=== PATIENT | male | born 1940 ===

== ENCOUNTER 2017-02-13 20:26 | Inpatient (IN) ==
[2017-02-13] MEDS ORDERED: ALBUTEROL 2.5 MG/3 ML NEB RESP TX PRN (22:49)
[2017-02-13] MEDS ORDERED: ONDANSETRON 4 MG/2 ML VIAL IV PRN (22:49)
[2017-02-14] MEDS ORDERED: GLUCAGON 1 MG VIAL IM PRN (00:09)
[2017-02-14] MEDS ORDERED: MAGNESIUM SULF RIDER 1 GM in PREMIX 1 EACH IV ONE (00:09)
[2017-02-14] MEDS: POTASSIUM CHLORIDE RIDER 10 MEQ in PREMIX 1 EACH IV SCH ×7 (01:06→13:39)
[2017-02-14] MEDS: DEXT 5% NACL 0.45% KCL 20 MEQ 20 MEQ/1,000 ML BAG IV SCH ×2 (01:07→13:01)
[2017-02-14] MEDS: INSULIN REGULAR 100 UNIT/ML SUBCUT SCH ×4 (01:08→18:27)
[2017-02-14] MEDS: PIPERACILLIN/TAZOBACTAM 3,375 MG in SODIUM CHLORIDE 0.9% 100 ML IV SCH ×3 (02:38→20:47)
[2017-02-14 07:28] LABS: ABG Base Excess 17.9 MMOL/L (-2.5-2.5); ABG HCO3 42.1 MMOL/L (20-26); ABG Oxygen Saturation 95.9 % (95-100); ABG PCO2 64.1 MM HG (35-48); ABG PH 7.461 (7.35-7.45); ABG PO2 81.6 MM HG (80-95); ABG TCO2 40.1 MMOL/L (23-27); Allen Test Positive
[2017-02-14 07:44] LABS: Basophils % 0.2 % (0.0-0.8); Eosinophils % 0.4 % (0.00-10.9); Hematocrit 36.8 VOL% (42.0-52.0); Hemoglobin 12.8 GM/DL (14.0-18.0); Immature Granulocytes % 0.2 %; Immature Granulocytes Absolute 0.01 #; Lymphocytes # 0.5 10*3/uL (1.4-4.0); Lymphocytes % 9.4 % (21.2-54.2); Mean Corpuscular HGB Conc 34.8 GM/DL (32-36); Mean Corpuscular Hemoglobin 34 PG (27-34); Mean Corpuscular Volume 96.8 FL (87-102); Mean Platelet Volume 9.3 FL (9.6-12.0); Monocytes # 0.5 10*3/uL (0.11-0.8); Monocytes % 10.4 % (1.7-12.7); Neutrophils # 4.1 10*3/uL (1.4-7.4); Neutrophils % 79.4 % (38.7-73.9); Platelet Count 153 T/CUMM (130-400); Red Cell Distribution Width 13.9 % (9.3-17.3); White Blood Count 5.1 T/CUMM (4-12)
[2017-02-14] MEDS: PANTOPRAZOLE 40 MG TABLET PO SCH (08:06)
[2017-02-14 08:26] LABS: Alanine Aminotransferase 17 U/L (16-61); Albumin 2.6 G/DL (3.4-5.0); Alkaline Phosphatase 59 U/L (45-117); Aspartate Amino Transferase 24 U/L (0-37); Blood Urea Nitrogen 16 MG/DL (7-18); Calcium 7.7 MG/DL (8.5-10.1); Glucose 92 MG/DL (74-106); Magnesium 1.9 MG/DL (1.8-2.4); Osmolality,Calculated 283.1 MOS/KG (273-304); Sodium 142 MMOL/L (136-145); Total Protein 6.5 G/DL (6.4-8.3)
[2017-02-14 08:38] LABS: Potassium 2.1 MMOL/L (3.5-5.1)
[2017-02-14] MEDS ORDERED: POTASSIUM CHLORIDE 20 MEQ TABLET PO ONE (09:30)
[2017-02-15] MEDS: INSULIN REGULAR 100 UNIT/ML SUBCUT SCH ×4 (00:14→19:14)
[2017-02-15] MEDS: DEXT 5% NACL 0.45% KCL 20 MEQ 20 MEQ/1,000 ML BAG IV SCH ×2 (01:53→16:15)
[2017-02-15] MEDS: PIPERACILLIN/TAZOBACTAM 3,375 MG in SODIUM CHLORIDE 0.9% 100 ML IV SCH ×3 (04:28→22:20)
[2017-02-15 05:23] LABS: Basophils % 0.3 % (0.0-0.8); Eosinophils % 0.5 % (0.00-10.9); Hematocrit 35.7 VOL% (42.0-52.0); Hemoglobin 12.3 GM/DL (14.0-18.0); Immature Granulocytes % 0.5 %; Immature Granulocytes Absolute 0.02 #; Lymphocytes # 0.4 10*3/uL (1.4-4.0); Lymphocytes % 11.4 % (21.2-54.2); Mean Corpuscular HGB Conc 34.5 GM/DL (32-36); Mean Corpuscular Hemoglobin 33 PG (27-34); Mean Corpuscular Volume 96.5 FL (87-102); Mean Platelet Volume 9.6 FL (9.6-12.0); Monocytes # 0.4 10*3/uL (0.11-0.8); Monocytes % 11.7 % (1.7-12.7); Neutrophils # 2.8 10*3/uL (1.4-7.4); Neutrophils % 75.6 % (38.7-73.9); Platelet Count 144 T/CUMM (130-400); Red Cell Distribution Width 14.1 % (9.3-17.3); White Blood Count 3.7 T/CUMM (4-12)
[2017-02-15 05:59] LABS: Albumin 2.3 G/DL (3.4-5.0); Calcium 7.2 MG/DL (8.5-10.1); Osmolality,Calculated 277.4 MOS/KG (273-304); Potassium 2.6 MMOL/L (3.5-5.1); Total Protein 5.8 G/DL (6.4-8.3)
[2017-02-15] MEDS: ACETAMINOPHEN 325 MG TABLET PO PRN ×2 (07:03→15:09)
[2017-02-15] MEDS: POTASSIUM CHLORIDE RIDER 10 MEQ in PREMIX 1 EACH IV PRN ×5 (07:04→11:16)
[2017-02-15] MEDS: PANTOPRAZOLE 40 MG TABLET PO SCH (10:59)
[2017-02-16] MEDS: INSULIN REGULAR 100 UNIT/ML SUBCUT SCH ×4 (00:22→18:30)
[2017-02-16] MEDS: PIPERACILLIN/TAZOBACTAM 3,375 MG in SODIUM CHLORIDE 0.9% 100 ML IV SCH ×3 (04:31→21:18)
[2017-02-16] MEDS: DEXT 5% NACL 0.45% KCL 20 MEQ 20 MEQ/1,000 ML BAG IV SCH ×2 (05:21→20:05)
[2017-02-16 05:23] LABS: Basophils % 0.4 % (0.0-0.8); Eosinophils # 0.1 10*3/uL (0.0-0.87); Eosinophils % 1.1 % (0.00-10.9); Hematocrit 37.5 VOL% (42.0-52.0); Hemoglobin 12.5 GM/DL (14.0-18.0); Immature Granulocytes % 0.2 %; Immature Granulocytes Absolute 0.01 #; Lymphocytes # 0.6 10*3/uL (1.4-4.0); Lymphocytes % 14.1 % (21.2-54.2); Mean Corpuscular HGB Conc 33.3 GM/DL (32-36); Mean Corpuscular Hemoglobin 33 PG (27-34); Mean Corpuscular Volume 99.5 FL (87-102); Mean Platelet Volume 9.8 FL (9.6-12.0); Monocytes # 0.5 10*3/uL (0.11-0.8); Monocytes % 10.8 % (1.7-12.7); Neutrophils # 3.3 10*3/uL (1.4-7.4); Neutrophils % 73.4 % (38.7-73.9); Platelet Count 153 T/CUMM (130-400); Red Blood Count 3.77 MC/CUMM (3.8-5.5); White Blood Count 4.5 T/CUMM (4-12)
[2017-02-16 05:47] LABS: Calcium 7.8 MG/DL (8.5-10.1); Magnesium 1.8 MG/DL (1.8-2.4); Osmolality,Calculated 275.5 MOS/KG (273-304); Potassium 3.5 MMOL/L (3.5-5.1)
[2017-02-16] MEDS: ACETAMINOPHEN 325 MG TABLET PO PRN (07:31)
[2017-02-16] MEDS: PANTOPRAZOLE 40 MG TABLET PO SCH (12:26)
[2017-02-16] MEDS ORDERED: NEOSTIGMINE 10 MG/10 ML VIAL IV ONE (12:48)
[2017-02-16] MEDS: NEOSTIGMINE 10 MG/10 ML VIAL IV SCH ×2 (14:18→22:50)
[2017-02-17] MEDS: INSULIN REGULAR 100 UNIT/ML SUBCUT SCH ×4 (00:39→17:55)
[2017-02-17] MEDS: PIPERACILLIN/TAZOBACTAM 3,375 MG in SODIUM CHLORIDE 0.9% 100 ML IV SCH ×3 (04:18→22:46)
[2017-02-17] MEDS: NEOSTIGMINE 10 MG/10 ML VIAL IV SCH (05:43)
[2017-02-17] MEDS: DEXT 5% NACL 0.45% KCL 20 MEQ 20 MEQ/1,000 ML BAG IV SCH ×2 (08:36→22:48)
[2017-02-17] MEDS: PANTOPRAZOLE 40 MG TABLET PO SCH (10:20)
[2017-02-17] MEDS: ACETAMINOPHEN 325 MG TABLET PO PRN (16:14)
[2017-02-18] MEDS: ACETAMINOPHEN 325 MG TABLET PO PRN (01:15)
[2017-02-18] MEDS: INSULIN REGULAR 100 UNIT/ML SUBCUT SCH ×4 (01:49→18:12)
[2017-02-18 06:29] LABS: Basophils % 0.6 % (0.0-0.8); Eosinophils # 0.1 10*3/uL (0.0-0.87); Hemoglobin 12.5 GM/DL (14.0-18.0); Immature Granulocytes % 0.6 %; Immature Granulocytes Absolute 0.03 #; Lymphocytes # 0.6 10*3/uL (1.4-4.0); Lymphocytes % 11.8 % (21.2-54.2); Mean Corpuscular HGB Conc 33.8 GM/DL (32-36); Mean Corpuscular Hemoglobin 33 PG (27-34); Mean Corpuscular Volume 98.7 FL (87-102); Mean Platelet Volume 9.1 FL (9.6-12.0); Monocytes # 0.7 10*3/uL (0.11-0.8); Monocytes % 14.1 % (1.7-12.7); Neutrophils # 3.5 10*3/uL (1.4-7.4); Neutrophils % 71.9 % (38.7-73.9); Platelet Count 161 T/CUMM (130-400); Red Blood Count 3.75 MC/CUMM (3.8-5.5); Red Cell Distribution Width 13.5 % (9.3-17.3); White Blood Count 4.9 T/CUMM (4-12)
[2017-02-18] MEDS: PIPERACILLIN/TAZOBACTAM 3,375 MG in SODIUM CHLORIDE 0.9% 100 ML IV SCH ×2 (06:48→22:28)
[2017-02-18 07:04] LABS: Calcium 8.1 MG/DL (8.5-10.1); Osmolality,Calculated 270.8 MOS/KG (273-304)
[2017-02-18] MEDS: PANTOPRAZOLE 40 MG TABLET PO SCH (08:49)
[2017-02-18] MEDS: LISINOPRIL/HCTZ 10-12.5 MG TABLET PO SCH (08:49)
[2017-02-18] MEDS: ALBUTEROL/IPRATROPIUM 3 ML NEB RESP TX PRN (10:28)
[2017-02-18] MEDS: POTASSIUM CHLORIDE RIDER 10 MEQ in PREMIX 1 EACH IV PRN ×5 (10:29→21:22)
[2017-02-18] MEDS ORDERED: FUROSEMIDE 20 MG/2 ML VIAL IV ONE (10:31)
[2017-02-18] MEDS: DEXT 5% NACL 0.45% KCL 20 MEQ 20 MEQ/1,000 ML BAG IV SCH (13:03)
[2017-02-18] MEDS: methylPREDNISolone SOD SUC 40 MG/1 ML VIAL IV SCH (13:05)
[2017-02-18] MEDS ORDERED: POTASSIUM CHLORIDE 20 MEQ TABLET PO SCH (14:30)
[2017-02-19] MEDS: methylPREDNISolone SOD SUC 40 MG/1 ML VIAL IV SCH ×2 (02:06→09:26)
[2017-02-19] MEDS: INSULIN REGULAR 100 UNIT/ML SUBCUT SCH ×4 (02:35→21:20)
[2017-02-19] MEDS: DEXT 5% NACL 0.45% KCL 20 MEQ 20 MEQ/1,000 ML BAG IV SCH ×3 (02:35→15:54)
[2017-02-19] MEDS: ALBUTEROL/IPRATROPIUM 3 ML NEB RESP TX PRN (04:05)
[2017-02-19] MEDS: PIPERACILLIN/TAZOBACTAM 3,375 MG in SODIUM CHLORIDE 0.9% 100 ML IV SCH ×3 (05:54→21:54)
[2017-02-19] MEDS: LISINOPRIL/HCTZ 10-12.5 MG TABLET PO SCH (09:25)
[2017-02-19] MEDS: PANTOPRAZOLE 40 MG TABLET PO SCH (09:25)
[2017-02-19] MEDS: LACTULOSE 20 GM/30 ML UDCUP PO SCH ×3 (15:58→22:50)
[2017-02-20] MEDS: INSULIN REGULAR 100 UNIT/ML SUBCUT SCH ×4 (01:12→18:18)
[2017-02-20] MEDS: LACTULOSE 20 GM/30 ML UDCUP PO SCH ×5 (01:17→20:26)
[2017-02-20] MEDS ORDERED: DILTIAZEM 50 MG/10 ML VIAL IV ONE (02:28)
[2017-02-20] MEDS ORDERED: DILTIAZEM 100 MG VIAL.ADD IV ONE (02:28)
[2017-02-20] MEDS ORDERED: SODIUM CHLORIDE 0.9% 100 ML IV ONE (02:29)
[2017-02-20] MEDS ORDERED: DILTIAZEM INJ 100 MG in SODIUM CHLORIDE 0.9% 100 ML IV SCH (02:30)
[2017-02-20] MEDS: DILTIAZEM 50 MG/10 ML VIAL IV ONE ×2 (02:50→03:49)
[2017-02-20] MEDS ORDERED: AMIODARONE INJ 450 MG in DEXTROSE 5% 241 ML IV SCH ×2 (03:30→09:30)
[2017-02-20] MEDS ORDERED: AMIODARONE 450 MG/9 ML VIAL IV ONE (03:31)
[2017-02-20 03:39] LABS: Calcium 8.5 MG/DL (8.5-10.1); Magnesium 1.5 MG/DL (1.8-2.4); Potassium 3.4 MMOL/L (3.5-5.1); Prealbumin 7.8 MG/DL (20-40)
[2017-02-20] MEDS: POTASSIUM CHLORIDE RIDER 10 MEQ in PREMIX 1 EACH IV PRN ×3 (04:17→06:44)
[2017-02-20] MEDS: PIPERACILLIN/TAZOBACTAM 3,375 MG in SODIUM CHLORIDE 0.9% 100 ML IV SCH ×3 (06:04→21:10)
[2017-02-20 06:50] LABS: Basophils % 0.1 % (0.0-0.8); Hematocrit 35.5 VOL% (42.0-52.0); Hemoglobin 12.1 GM/DL (14.0-18.0); Immature Granulocytes % 0.3 %; Immature Granulocytes Absolute 0.02 #; Lymphocytes # 0.4 10*3/uL (1.4-4.0); Lymphocytes % 5.3 % (21.2-54.2); Mean Corpuscular HGB Conc 34.1 GM/DL (32-36); Mean Corpuscular Hemoglobin 33 PG (27-34); Mean Corpuscular Volume 97.3 FL (87-102); Mean Platelet Volume 9.3 FL (9.6-12.0); Monocytes # 0.8 10*3/uL (0.11-0.8); Monocytes % 11.2 % (1.7-12.7); Neutrophils # 5.9 10*3/uL (1.4-7.4); Neutrophils % 83.1 % (38.7-73.9); Platelet Count 177 T/CUMM (130-400); Red Blood Count 3.65 MC/CUMM (3.8-5.5); Red Cell Distribution Width 13.7 % (9.3-17.3); White Blood Count 7.2 T/CUMM (4-12)
[2017-02-20] MEDS: methylPREDNISolone SOD SUC 40 MG/1 ML VIAL IV SCH (08:38)
[2017-02-20] MEDS: PANTOPRAZOLE 40 MG TABLET PO SCH (08:39)
[2017-02-20] MEDS ORDERED: MAGNESIUM SULF RIDER 4 GM in PREMIX 1 EACH IV ONE (10:10)
[2017-02-20] MEDS ORDERED: POTASSIUM CHLORIDE 20 MEQ TABLET PO ONE (14:27)
[2017-02-20] MEDS: CARVEDILOL 6.25 MG TABLET PO SCH ×2 (15:51→20:27)
[2017-02-21] MEDS: INSULIN REGULAR 100 UNIT/ML SUBCUT SCH ×4 (00:15→18:39)
[2017-02-21] MEDS: PIPERACILLIN/TAZOBACTAM 3,375 MG in SODIUM CHLORIDE 0.9% 100 ML IV SCH ×3 (05:24→21:48)
[2017-02-21] MEDS: ACETAMINOPHEN 325 MG TABLET PO PRN (05:25)
[2017-02-21 07:31] LABS: Hematocrit 31.4 VOL% (42.0-52.0); Hemoglobin 10.7 GM/DL (14.0-18.0); Immature Granulocytes % 0.4 %; Immature Granulocytes Absolute 0.02 #; Lymphocytes # 0.2 10*3/uL (1.4-4.0); Lymphocytes % 4.7 % (21.2-54.2); Mean Corpuscular HGB Conc 34.1 GM/DL (32-36); Mean Corpuscular Hemoglobin 34 PG (27-34); Mean Corpuscular Volume 98.4 FL (87-102); Mean Platelet Volume 9.5 FL (9.6-12.0); Monocytes # 0.3 10*3/uL (0.11-0.8); Monocytes % 6.4 % (1.7-12.7); Neutrophils # 4.1 10*3/uL (1.4-7.4); Neutrophils % 88.5 % (38.7-73.9); Platelet Count 150 T/CUMM (130-400); Red Blood Count 3.19 MC/CUMM (3.8-5.5); White Blood Count 4.7 T/CUMM (4-12)
[2017-02-21 08:03] LABS: Magnesium 2.6 MG/DL (1.8-2.4); Osmolality,Calculated 281.3 MOS/KG (273-304); Potassium 2.6 MMOL/L (3.5-5.1)
[2017-02-21 08:31] LABS: Burr Cells Slight; Lymphocytes 10 % (20-55); Platelet Estimate Normal; Poikilocytosis Slight; Segmented Neutrophils 89 % (50-85); Total Cells Counted 100
[2017-02-21] MEDS: CARVEDILOL 6.25 MG TABLET PO SCH ×2 (09:20→21:48)
[2017-02-21] MEDS: LACTULOSE 20 GM/30 ML UDCUP PO SCH ×2 (09:20→21:48)
[2017-02-21] MEDS: PANTOPRAZOLE 40 MG TABLET PO SCH (09:20)
[2017-02-21] MEDS: methylPREDNISolone SOD SUC 40 MG/1 ML VIAL IV SCH (09:20)
[2017-02-21] MEDS: POTASSIUM CHLORIDE 20 MEQ TABLET PO SCH ×3 (17:05→21:48)
[2017-02-21] MEDS: POTASSIUM CHLORIDE INJ 40 MEQ in SODIUM CHLORIDE 0.45% 1,000 ML IV SCH (17:10)
[2017-02-22] MEDS: INSULIN REGULAR 100 UNIT/ML SUBCUT SCH ×4 (00:29→20:26)
[2017-02-22] MEDS: POTASSIUM CHLORIDE INJ 40 MEQ in SODIUM CHLORIDE 0.45% 1,000 ML IV SCH ×2 (02:40→13:22)
[2017-02-22] MEDS: PIPERACILLIN/TAZOBACTAM 3,375 MG in SODIUM CHLORIDE 0.9% 100 ML IV SCH ×3 (06:10→21:35)
[2017-02-22 07:53] LABS: Hematocrit 35.6 VOL% (42.0-52.0); Hemoglobin 11.8 GM/DL (14.0-18.0); Immature Granulocytes % 0.4 %; Immature Granulocytes Absolute 0.03 #; Lymphocytes # 0.3 10*3/uL (1.4-4.0); Lymphocytes % 5.1 % (21.2-54.2); Mean Corpuscular HGB Conc 33.1 GM/DL (32-36); Mean Corpuscular Hemoglobin 33 PG (27-34); Mean Platelet Volume 9.5 FL (9.6-12.0); Monocytes # 0.6 10*3/uL (0.11-0.8); Neutrophils # 5.7 10*3/uL (1.4-7.4); Neutrophils % 85.5 % (38.7-73.9); Platelet Count 149 T/CUMM (130-400); Red Blood Count 3.56 MC/CUMM (3.8-5.5); Red Cell Distribution Width 14.1 % (9.3-17.3); White Blood Count 6.7 T/CUMM (4-12)
[2017-02-22 08:14] LABS: Calcium 8.3 MG/DL (8.5-10.1); Magnesium 2.2 MG/DL (1.8-2.4); Osmolality,Calculated 284.3 MOS/KG (273-304); Potassium 4.8 MMOL/L (3.5-5.1)
[2017-02-22] MEDS: methylPREDNISolone SOD SUC 40 MG/1 ML VIAL IV SCH (08:35)
[2017-02-22] MEDS: PANTOPRAZOLE 40 MG TABLET PO SCH (08:36)
[2017-02-22] MEDS: LACTULOSE 20 GM/30 ML UDCUP PO SCH ×2 (08:36→21:28)
[2017-02-22] MEDS: CARVEDILOL 6.25 MG TABLET PO SCH (08:36)
[2017-02-22] MEDS ORDERED: FUROSEMIDE 40 MG/4 ML VIAL ONE (15:32)
[2017-02-22 15:47] LABS: ABG Base Excess 7.1 MMOL/L (-2.5-2.5); ABG HCO3 30.9 MMOL/L (20-26); ABG Oxygen Saturation 95.4 % (95-100); ABG PH 7.229 (7.35-7.45); ABG PO2 87.7 MM HG (80-95); ABG TCO2 35.3 MMOL/L (23-27); Allen Test Positive
[2017-02-22 15:53] LABS: ABG PCO2 92.9 MM HG (35-48)
[2017-02-22] MEDS ORDERED: FUROSEMIDE 40 MG/4 ML VIAL IV SCH (16:00)
[2017-02-22] MEDS: FUROSEMIDE 40 MG/4 ML VIAL IV SCH (16:14)
[2017-02-22] MEDS ORDERED: EPINEPHrine 1 MG/10 ML SYRINGE ONE (19:20)
[2017-02-22] MEDS ORDERED: ETOMIDATE 20 MG/10 ML VIAL IV ONE ×2 (19:21→19:43)
[2017-02-22] MEDS ORDERED: SUCCINYLCHOLINE 200 MG/10 ML VIAL ONE (19:21)
[2017-02-22] MEDS ORDERED: DOPamine 800 MG/250 ML PREMIX IV ONE (19:27)
[2017-02-22] MEDS ORDERED: ATROPINE 1 MG/1 ML VIAL ONE (19:28)
[2017-02-22] MEDS: PROPOFOL 1,000 MG/100 ML BOTTLE IV SCH (19:30)
[2017-02-22] MEDS ORDERED: PROPOFOL 1,000 MG/100 ML BOTTLE IV ONE (19:33)
[2017-02-22] MEDS ORDERED: ATROPINE 1 MG/10 ML SYRINGE IV ONE (19:43)
[2017-02-22] MEDS ORDERED: DOPamine 800 MG/250 ML PREMIX IV SCH (20:00)
[2017-02-22 20:28] LABS: ABG Base Excess 13.2 MMOL/L (-2.5-2.5); ABG HCO3 34.3 MMOL/L (20-26); ABG Oxygen Saturation 99.4 % (95-100); ABG PCO2 31.4 MM HG (35-48); ABG PH 7.656 (7.35-7.45); ABG PO2 492.8 MM HG (80-95); ABG TCO2 35.2 MMOL/L (23-27); Allen Test Positive; Pt O2 Delivery Device Ventilator
[2017-02-22] MEDS: ALBUTEROL/IPRATROPIUM 3 ML NEB RESP TX SCH (20:30)
[2017-02-22] MEDS ORDERED: CARVEDILOL 3.125 MG TABLET PO SCH (21:00)
[2017-02-22 21:34] LABS: ABG Base Excess 14.7 MMOL/L (-2.5-2.5); ABG HCO3 38.7 MMOL/L (20-26); ABG Oxygen Saturation 99.8 % (95-100); ABG PCO2 42.3 MM HG (35-48); ABG PH 7.569 (7.35-7.45); ABG TCO2 34.2 MMOL/L (23-27); Allen Test Positive; Pt O2 Delivery Device Ventilator
[2017-02-23] MEDS: INSULIN REGULAR 100 UNIT/ML SUBCUT SCH ×4 (00:59→19:20)
[2017-02-23] MEDS: ALBUTEROL/IPRATROPIUM 3 ML NEB RESP TX SCH ×4 (01:12→19:49)
[2017-02-23] MEDS: MORPHINE 2 MG/1 ML SYRINGE IV PRN ×2 (04:13→13:09)
[2017-02-23 04:23] LABS: ABG Base Excess 13.7 MMOL/L (-2.5-2.5); ABG HCO3 37.6 MMOL/L (20-26); ABG Oxygen Saturation 99.7 % (95-100); ABG PCO2 43.4 MM HG (35-48); ABG TCO2 33.3 MMOL/L (23-27)
[2017-02-23 05:37] LABS: Hemoglobin 11.9 GM/DL (14.0-18.0); Immature Granulocytes % 0.3 %; Immature Granulocytes Absolute 0.03 #; Lymphocytes # 0.4 10*3/uL (1.4-4.0); Lymphocytes % 3.5 % (21.2-54.2); Mean Corpuscular Hemoglobin 34 PG (27-34); Mean Platelet Volume 9.6 FL (9.6-12.0); Monocytes # 0.7 10*3/uL (0.11-0.8); Monocytes % 6.6 % (1.7-12.7); Neutrophils # 9.1 10*3/uL (1.4-7.4); Neutrophils % 89.6 % (38.7-73.9); Platelet Count 118 T/CUMM (130-400); Red Blood Count 3.54 MC/CUMM (3.8-5.5); Red Cell Distribution Width 13.5 % (9.3-17.3); White Blood Count 10.1 T/CUMM (4-12)
[2017-02-23] MEDS: PIPERACILLIN/TAZOBACTAM 3,375 MG in SODIUM CHLORIDE 0.9% 100 ML IV SCH ×3 (05:37→21:49)
[2017-02-23 06:11] LABS: Calcium 8.5 MG/DL (8.5-10.1); Magnesium 2.2 MG/DL (1.8-2.4); Osmolality,Calculated 285.1 MOS/KG (273-304); Potassium 3.8 MMOL/L (3.5-5.1)
[2017-02-23 07:57] LABS: INR 1.2; PT Patient Result 12.4 SECS
[2017-02-23] MEDS: PROPOFOL 1,000 MG/100 ML BOTTLE IV SCH ×2 (08:27→20:34)
[2017-02-23] MEDS: FUROSEMIDE 40 MG/4 ML VIAL IV SCH (08:39)
[2017-02-23] MEDS: LACTULOSE 20 GM/30 ML UDCUP PO SCH ×2 (08:39→21:49)
[2017-02-23] MEDS: PANTOPRAZOLE 40 MG VIAL IV SCH (08:40)
[2017-02-23] MEDS: methylPREDNISolone SOD SUC 40 MG/1 ML VIAL IV SCH (08:40)
[2017-02-23 09:00] LABS: Lymphocytes 1 % (20-55); Segmented Neutrophils 95 % (50-85); Total Cells Counted 100
[2017-02-23 09:01] LABS: Hypochromasia 1+; Platelet Estimate Adequate; Target Cells Slight
[2017-02-24] MEDS: ALBUTEROL/IPRATROPIUM 3 ML NEB RESP TX SCH ×4 (01:17→19:49)
[2017-02-24] MEDS: INSULIN REGULAR 100 UNIT/ML SUBCUT SCH ×4 (01:31→17:50)
[2017-02-24] MEDS: PIPERACILLIN/TAZOBACTAM 3,375 MG in SODIUM CHLORIDE 0.9% 100 ML IV SCH ×3 (05:09→21:14)
[2017-02-24] MEDS: PROPOFOL 1,000 MG/100 ML BOTTLE IV SCH ×2 (05:10→20:09)
[2017-02-24 05:12] LABS: ABG Base Excess 16.6 MMOL/L (-2.5-2.5); ABG HCO3 40.8 MMOL/L (20-26); ABG Oxygen Saturation 99.4 % (95-100); ABG PCO2 40.5 MM HG (35-48); ABG TCO2 35.6 MMOL/L (23-27); Allen Test Positive; Pt O2 Delivery Device Ventilator
[2017-02-24 05:18] LABS: ABG PH 7.606 (7.35-7.45)
[2017-02-24 05:53] LABS: Calcium 7.8 MG/DL (8.5-10.1); Magnesium 1.8 MG/DL (1.8-2.4); Osmolality,Calculated 290.7 MOS/KG (273-304); Potassium 2.6 MMOL/L (3.5-5.1)
[2017-02-24 07:13] LABS: Basophils % 0.1 % (0.0-0.8); Hematocrit 31.6 VOL% (42.0-52.0); Hemoglobin 11.8 GM/DL (14.0-18.0); Immature Granulocytes % 0.6 %; Immature Granulocytes Absolute 0.05 #; Lymphocytes # 0.3 10*3/uL (1.4-4.0); Lymphocytes % 3.5 % (21.2-54.2); Mean Corpuscular HGB Conc 37.3 GM/DL (32-36); Mean Corpuscular Hemoglobin 34 PG (27-34); Mean Corpuscular Volume 92.1 FL (87-102); Mean Platelet Volume 10.5 FL (9.6-12.0); Monocytes # 0.6 10*3/uL (0.11-0.8); NRBC # 0.02 10*3/uL; Neutrophils # 7.9 10*3/uL (1.4-7.4); Neutrophils % 88.8 % (38.7-73.9); Platelet Count 78 T/CUMM (130-400); Red Blood Count 3.43 MC/CUMM (3.8-5.5); Red Cell Distribution Width 13.9 % (9.3-17.3); White Blood Count 8.9 T/CUMM (4-12)
[2017-02-24 07:34] LABS: Platelet Estimate Decreased
[2017-02-24] MEDS: methylPREDNISolone SOD SUC 40 MG/1 ML VIAL IV SCH (08:51)
[2017-02-24] MEDS: LACTULOSE 20 GM/30 ML UDCUP PO SCH (08:53)
[2017-02-24] MEDS: PANTOPRAZOLE 40 MG VIAL IV SCH (08:55)
[2017-02-24] MEDS: FUROSEMIDE 40 MG/4 ML VIAL IV SCH (08:59)
[2017-02-24] MEDS: POTASSIUM CHLORIDE RIDER 10 MEQ in PREMIX 1 EACH IV PRN ×6 (09:16→17:22)
[2017-02-24] MEDS: ACETAMINOPHEN 325 MG TABLET PO PRN (11:56)
[2017-02-24] MEDS: NYSTATIN 500,000 UNIT/5 ML UDCUP SWISH/SWAL SCH ×3 (13:12→21:14)
[2017-02-24] MEDS ORDERED: MAGNESIUM SULF RIDER 2 GM in PREMIX 1 EACH IV ONE (13:20)
[2017-02-24] MEDS: SODIUM CHLORIDE 0.45% 1,000 ML IV SCH (13:33)
[2017-02-25] MEDS: ALBUTEROL/IPRATROPIUM 3 ML NEB RESP TX SCH ×4 (01:36→19:36)
[2017-02-25] MEDS: INSULIN REGULAR 100 UNIT/ML SUBCUT SCH ×4 (01:40→18:00)
[2017-02-25] MEDS: SODIUM CHLORIDE 0.45% 1,000 ML IV SCH ×4 (03:15→20:01)
[2017-02-25] MEDS: PROPOFOL 1,000 MG/100 ML BOTTLE IV SCH ×2 (03:17→20:11)
[2017-02-25 03:47] LABS: ABG Base Excess 11.2 MMOL/L (-2.5-2.5); ABG HCO3 36.2 MMOL/L (20-26); ABG Oxygen Saturation 98.4 % (95-100); ABG PCO2 49.7 MM HG (35-48); ABG PO2 145.7 MM HG (80-95); ABG TCO2 37.7 MMOL/L (23-27); Pt O2 Delivery Device Ventilator
[2017-02-25] MEDS: PIPERACILLIN/TAZOBACTAM 3,375 MG in SODIUM CHLORIDE 0.9% 100 ML IV SCH ×3 (05:45→22:28)
[2017-02-25 05:50] LABS: Basophils % 0.3 % (0.0-0.8); Hematocrit 32.1 VOL% (42.0-52.0); Hemoglobin 11.6 GM/DL (14.0-18.0); Immature Granulocytes % 0.5 %; Immature Granulocytes Absolute 0.06 #; Lymphocytes # 0.2 10*3/uL (1.4-4.0); Lymphocytes % 2.1 % (21.2-54.2); Mean Corpuscular HGB Conc 36.1 GM/DL (32-36); Mean Corpuscular Hemoglobin 34 PG (27-34); Mean Corpuscular Volume 92.8 FL (87-102); Mean Platelet Volume 10.7 FL (9.6-12.0); Monocytes # 0.7 10*3/uL (0.11-0.8); Monocytes % 6.4 % (1.7-12.7); Neutrophils # 10.1 10*3/uL (1.4-7.4); Neutrophils % 90.7 % (38.7-73.9); Platelet Count 77 T/CUMM (130-400); Red Blood Count 3.46 MC/CUMM (3.8-5.5); Red Cell Distribution Width 14.3 % (9.3-17.3); White Blood Count 11.2 T/CUMM (4-12)
[2017-02-25] MEDS: POTASSIUM CHLORIDE RIDER 10 MEQ in PREMIX 1 EACH IV PRN ×3 (05:51→08:02)
[2017-02-25 06:48] LABS: Hypochromasia 1+; Platelet Estimate Decreased; Segmented Neutrophils 97 % (50-85); Total Cells Counted 100
[2017-02-25 07:12] LABS: Magnesium 2.5 MG/DL (1.8-2.4); Osmolality,Calculated 282.5 MOS/KG (273-304); Potassium 3.7 MMOL/L (3.5-5.1)
[2017-02-25] MEDS ORDERED: LACTULOSE 20 GM/30 ML UDCUP PO SCH (09:00)
[2017-02-25] MEDS: methylPREDNISolone SOD SUC 40 MG/1 ML VIAL IV SCH (09:08)
[2017-02-25] MEDS: PANTOPRAZOLE 40 MG VIAL IV SCH (09:08)
[2017-02-25] MEDS: NYSTATIN 500,000 UNIT/5 ML UDCUP SWISH/SWAL SCH ×4 (09:08→20:11)
[2017-02-25] MEDS: MULTIVITAMIN LIQUID (CENTRUM) 60 ML BOTTLE PER TUBE SCH (09:13)
[2017-02-26] MEDS: ALBUTEROL/IPRATROPIUM 3 ML NEB RESP TX SCH ×4 (01:12→19:51)
[2017-02-26 04:01] LABS: ABG Base Excess 5.6 MMOL/L (-2.5-2.5); ABG HCO3 30.1 MMOL/L (20-26); ABG Oxygen Saturation 98.4 % (95-100); ABG PCO2 43.6 MM HG (35-48); ABG PH 7.457 (7.35-7.45); ABG PO2 128.4 MM HG (80-95); ABG TCO2 31.4 MMOL/L (23-27); Allen Test Positive; Pt O2 Delivery Device Ventilator
[2017-02-26] MEDS: SODIUM CHLORIDE 0.45% 1,000 ML IV SCH ×3 (04:10→20:41)
[2017-02-26] MEDS: PIPERACILLIN/TAZOBACTAM 3,375 MG in SODIUM CHLORIDE 0.9% 100 ML IV SCH ×3 (06:15→23:23)
[2017-02-26] MEDS: INSULIN REGULAR 100 UNIT/ML SUBCUT SCH ×4 (06:20→23:48)
[2017-02-26] MEDS ORDERED: LIDOCAINE 1% 20 ML VIAL MISC INJ ONE (07:00)
[2017-02-26] MEDS ORDERED: LIDOCAINE 2% 20 ML VIAL RESP TX ONE (07:00)
[2017-02-26] MEDS ORDERED: MIDAZOLAM 2 MG/2 ML VIAL IV ONE ×2 (07:02→07:12)
[2017-02-26] MEDS ORDERED: MIDAZOLAM 2 MG/2 ML VIAL ONE (07:03)
[2017-02-26 07:06] LABS: Basophils % 0.1 % (0.0-0.8); Eosinophils % 0.1 % (0.00-10.9); Hematocrit 31.7 VOL% (42.0-52.0); Hemoglobin 11.4 GM/DL (14.0-18.0); Immature Granulocytes % 0.8 %; Immature Granulocytes Absolute 0.12 #; Lymphocytes # 0.4 10*3/uL (1.4-4.0); Mean Corpuscular Hemoglobin 34 PG (27-34); Mean Corpuscular Volume 93.8 FL (87-102); Mean Platelet Volume 11.7 FL (9.6-12.0); Monocytes # 0.9 10*3/uL (0.11-0.8); Monocytes % 6.1 % (1.7-12.7); NRBC # 0.02 10*3/uL; Neutrophils % 89.9 % (38.7-73.9); Red Blood Count 3.38 MC/CUMM (3.8-5.5); Red Cell Distribution Width 14.8 % (9.3-17.3); White Blood Count 14.5 T/CUMM (4-12)
[2017-02-26 07:07] LABS: Platelet Count 54 T/CUMM (130-400)
[2017-02-26 08:00] LABS: Magnesium 2.2 MG/DL (1.8-2.4); Osmolality,Calculated 273.1 MOS/KG (273-304); Potassium 3.7 MMOL/L (3.5-5.1); Prealbumin 11.8 MG/DL (20-40)
[2017-02-26] MEDS: MULTIVITAMIN LIQUID (CENTRUM) 60 ML BOTTLE PER TUBE SCH (08:22)
[2017-02-26] MEDS: PANTOPRAZOLE 40 MG VIAL IV SCH (08:22)
[2017-02-26] MEDS: NYSTATIN 500,000 UNIT/5 ML UDCUP SWISH/SWAL SCH ×4 (08:22→20:40)
[2017-02-26] MEDS: methylPREDNISolone SOD SUC 40 MG/1 ML VIAL IV SCH (08:36)
[2017-02-26 08:59] LABS: Platelet Estimate Decreased
[2017-02-26] MEDS: POTASSIUM CHLORIDE RIDER 10 MEQ in PREMIX 1 EACH IV PRN ×2 (11:03→12:03)
[2017-02-26] MEDS ORDERED: TUBERCULIN SKIN TEST 0.1 ML SYRINGE INTRADERM ONE (15:00)
[2017-02-26] MEDS: RIFAMPIN 300 MG CAPSULE PO SCH (20:40)
[2017-02-27] MEDS: ALBUTEROL/IPRATROPIUM 3 ML NEB RESP TX SCH ×4 (02:14→19:02)
[2017-02-27 03:15] LABS: ABG HCO3 28.9 MMOL/L (20-26); ABG PCO2 45.2 MM HG (35-48); ABG PH 7.424 (7.35-7.45); ABG PO2 90.9 MM HG (80-95); ABG TCO2 30.3 MMOL/L (23-27); Allen Test Positive; Pt O2 Delivery Device Ventilator
[2017-02-27] MEDS: PIPERACILLIN/TAZOBACTAM 3,375 MG in SODIUM CHLORIDE 0.9% 100 ML IV SCH (06:30)
[2017-02-27] MEDS: INSULIN REGULAR 100 UNIT/ML SUBCUT SCH ×3 (06:58→17:50)
[2017-02-27 07:50] LABS: Basophils % 0.1 % (0.0-0.8); Eosinophils % 0.1 % (0.00-10.9); Hematocrit 32.2 VOL% (42.0-52.0); Hemoglobin 11.5 GM/DL (14.0-18.0); Immature Granulocytes % 0.6 %; Immature Granulocytes Absolute 0.07 #; Lymphocytes # 0.3 10*3/uL (1.4-4.0); Lymphocytes % 2.5 % (21.2-54.2); Mean Corpuscular HGB Conc 35.7 GM/DL (32-36); Mean Corpuscular Hemoglobin 33 PG (27-34); Mean Corpuscular Volume 93.3 FL (87-102); Mean Platelet Volume 10.6 FL (9.6-12.0); Monocytes # 0.5 10*3/uL (0.11-0.8); Monocytes % 4.6 % (1.7-12.7); Neutrophils # 10.5 10*3/uL (1.4-7.4); Neutrophils % 92.1 % (38.7-73.9); Platelet Count 114 T/CUMM (130-400); Red Blood Count 3.45 MC/CUMM (3.8-5.5); Red Cell Distribution Width 14.2 % (9.3-17.3); White Blood Count 11.4 T/CUMM (4-12)
[2017-02-27 08:13] LABS: Hypochromasia 1+; Lymphocytes 1 % (20-55); Microcytosis Slight; Ovalocytes Slight; Segmented Neutrophils 96 % (50-85); Total Cells Counted 100
[2017-02-27 08:14] LABS: Platelet Estimate Decreased
[2017-02-27 08:24] LABS: Calcium 7.8 MG/DL (8.5-10.1); Osmolality,Calculated 263.7 MOS/KG (273-304); Potassium 3.9 MMOL/L (3.5-5.1)
[2017-02-27 08:36] LABS: Bilirubin,Direct 0.36 MG/DL (0.0-0.20); Bilirubin,Indirect 0.3 MG/DL (0.0-1.0); Bilirubin,Total 0.7 MG/DL (0.2-1.0); Total Protein 5.2 G/DL (6.4-8.3)
[2017-02-27] MEDS: ETHAMBUTOL 400 MG TABLET PO SCH (09:43)
[2017-02-27] MEDS: SODIUM CHLORIDE 0.45% 1,000 ML IV SCH (09:44)
[2017-02-27] MEDS: ISONIAZID 300 MG TABLET PO SCH (09:44)
[2017-02-27] MEDS: MULTIVITAMIN LIQUID (CENTRUM) 60 ML BOTTLE PER TUBE SCH (09:45)
[2017-02-27] MEDS: PYRAZINAMIDE 500 MG TABLET PO SCH (09:45)
[2017-02-27] MEDS: NYSTATIN 500,000 UNIT/5 ML UDCUP SWISH/SWAL SCH ×4 (09:45→21:15)
[2017-02-27] MEDS: PANTOPRAZOLE 40 MG VIAL IV SCH (09:45)
[2017-02-27] MEDS: methylPREDNISolone SOD SUC 40 MG/1 ML VIAL IV SCH (09:46)
[2017-02-27] MEDS: PYRIDOXINE 50 MG TABLET PO SCH (09:46)
[2017-02-27] MEDS: RIFAMPIN 300 MG CAPSULE PO SCH ×2 (09:46→21:15)
[2017-02-28] MEDS: ALBUTEROL/IPRATROPIUM 3 ML NEB RESP TX SCH ×4 (00:42→19:38)
[2017-02-28] MEDS: INSULIN REGULAR 100 UNIT/ML SUBCUT SCH ×4 (02:15→18:30)
[2017-02-28 03:45] LABS: ABG Base Excess 5.7 MMOL/L (-2.5-2.5); ABG HCO3 29.6 MMOL/L (20-26); ABG Oxygen Saturation 98.4 % (95-100); ABG PCO2 38.4 MM HG (35-48); ABG PH 7.491 (7.35-7.45); ABG PO2 98.2 MM HG (80-95); ABG TCO2 26.5 MMOL/L (23-27); Allen Test Positive; Pt O2 Delivery Device Ventilator
[2017-02-28 04:21] LABS: Eosinophils # 0.1 10*3/uL (0.0-0.87); Eosinophils % 0.5 % (0.00-10.9); Hematocrit 28.7 VOL% (42.0-52.0); Hemoglobin 10.3 GM/DL (14.0-18.0); Immature Granulocytes % 0.5 %; Immature Granulocytes Absolute 0.05 #; Lymphocytes # 0.2 10*3/uL (1.4-4.0); Lymphocytes % 2.6 % (21.2-54.2); Mean Corpuscular HGB Conc 35.9 GM/DL (32-36); Mean Corpuscular Hemoglobin 33 PG (27-34); Mean Platelet Volume 10.4 FL (9.6-12.0); Monocytes # 0.6 10*3/uL (0.11-0.8); Monocytes % 6.7 % (1.7-12.7); Neutrophils # 8.2 10*3/uL (1.4-7.4); Neutrophils % 89.7 % (38.7-73.9); Platelet Count 123 T/CUMM (130-400); Red Blood Count 3.12 MC/CUMM (3.8-5.5); Red Cell Distribution Width 13.9 % (9.3-17.3); White Blood Count 9.2 T/CUMM (4-12)
[2017-02-28 04:39] LABS: Calcium 7.7 MG/DL (8.5-10.1); Osmolality,Calculated 263.7 MOS/KG (273-304); Potassium 3.2 MMOL/L (3.5-5.1)
[2017-02-28] MEDS: SODIUM CHLORIDE 0.45% 1,000 ML IV SCH ×3 (04:51→13:49)
[2017-02-28 05:06] LABS: Burr Cells Slight; Giant Platelets Few; Hypochromasia 1+; Lymphocytes 1 % (20-55); Ovalocytes Slight; Platelet Estimate Normal; Segmented Neutrophils 94 % (50-85); Total Cells Counted 100
[2017-02-28 05:07] LABS: Microcytosis Slight
[2017-02-28] MEDS: RIFAMPIN 300 MG CAPSULE PO SCH ×2 (08:46→21:28)
[2017-02-28] MEDS: ETHAMBUTOL 400 MG TABLET PO SCH (08:46)
[2017-02-28] MEDS: ISONIAZID 300 MG TABLET PO SCH (08:46)
[2017-02-28] MEDS: PANTOPRAZOLE 40 MG VIAL IV SCH (08:47)
[2017-02-28] MEDS: PYRIDOXINE 50 MG TABLET PO SCH (08:47)
[2017-02-28] MEDS: PYRAZINAMIDE 500 MG TABLET PO SCH (08:47)
[2017-02-28] MEDS: NYSTATIN 500,000 UNIT/5 ML UDCUP SWISH/SWAL SCH ×4 (08:48→21:28)
[2017-02-28] MEDS: POTASSIUM CHLORIDE RIDER 10 MEQ in PREMIX 1 EACH IV PRN (08:48)
[2017-02-28] MEDS: methylPREDNISolone SOD SUC 40 MG/1 ML VIAL IV SCH (08:49)
[2017-02-28] MEDS: MULTIVITAMIN LIQUID (CENTRUM) 60 ML BOTTLE PER TUBE SCH (08:51)
[2017-02-28] MEDS: MORPHINE 2 MG/1 ML SYRINGE IV PRN (08:51)
[2017-03-01] MEDS: ALBUTEROL/IPRATROPIUM 3 ML NEB RESP TX SCH ×4 (01:31→19:37)
[2017-03-01 03:36] LABS: ABG Base Excess 6.3 MMOL/L (-2.5-2.5); ABG HCO3 29.6 MMOL/L (20-26); ABG Oxygen Saturation 96.7 % (95-100); ABG PCO2 37.5 MM HG (35-48); ABG PH 7.515 (7.35-7.45); ABG PO2 83.5 MM HG (80-95); ABG TCO2 30.7 MMOL/L (23-27); Pt O2 Delivery Device Ventilator
[2017-03-01] MEDS: SODIUM CHLORIDE 0.45% 1,000 ML IV SCH ×2 (04:01→04:03)
[2017-03-01] MEDS: INSULIN REGULAR 100 UNIT/ML SUBCUT SCH ×4 (04:03→18:24)
[2017-03-01 05:47] LABS: Basophils % 0.1 % (0.0-0.8); Eosinophils # 0.1 10*3/uL (0.0-0.87); Eosinophils % 0.7 % (0.00-10.9); Hematocrit 25.7 VOL% (42.0-52.0); Hemoglobin 9.5 GM/DL (14.0-18.0); Immature Granulocytes % 0.5 %; Immature Granulocytes Absolute 0.04 #; Lymphocytes # 0.2 10*3/uL (1.4-4.0); Lymphocytes % 2.5 % (21.2-54.2); Mean Corpuscular Hemoglobin 33 PG (27-34); Mean Corpuscular Volume 88.9 FL (87-102); Mean Platelet Volume 10.2 FL (9.6-12.0); Monocytes # 0.5 10*3/uL (0.11-0.8); Monocytes % 6.3 % (1.7-12.7); Neutrophils # 6.8 10*3/uL (1.4-7.4); Neutrophils % 89.9 % (38.7-73.9); Platelet Count 138 T/CUMM (130-400); Red Blood Count 2.89 MC/CUMM (3.8-5.5); Red Cell Distribution Width 13.3 % (9.3-17.3); White Blood Count 7.6 T/CUMM (4-12)
[2017-03-01 06:09] LABS: Blood Urea Nitrogen 15 MG/DL (7-18); Calcium 7.7 MG/DL (8.5-10.1); Glucose 73 MG/DL (74-106); Magnesium 1.8 MG/DL (1.8-2.4); Osmolality,Calculated 259.8 MOS/KG (273-304); Potassium 3.2 MMOL/L (3.5-5.1); Sodium 130 MMOL/L (136-145)
[2017-03-01] MEDS: POTASSIUM CHLORIDE RIDER 10 MEQ in PREMIX 1 EACH IV PRN ×4 (06:44→15:50)
[2017-03-01 06:54] LABS: Band Neutrophils 16 % (0-10); Hypochromasia 1+; Lymphocytes 7 % (20-55); Platelet Estimate Decreased; Segmented Neutrophils 70 % (50-85); Total Cells Counted 100
[2017-03-01 08:18] LABS: Allen Test Positive; Pt O2 Delivery Device Ventilator
[2017-03-01 08:19] LABS: ABG Base Excess 6.6 MMOL/L (-2.5-2.5); ABG HCO3 30.5 MMOL/L (20-26); ABG Oxygen Saturation 97.9 % (95-100); ABG PCO2 42.6 MM HG (35-48); ABG PO2 90.3 MM HG (80-95); ABG TCO2 28.1 MMOL/L (23-27)
[2017-03-01] MEDS: PANTOPRAZOLE 40 MG VIAL IV SCH (08:37)
[2017-03-01] MEDS: NYSTATIN 500,000 UNIT/5 ML UDCUP SWISH/SWAL SCH ×4 (08:37→23:00)
[2017-03-01] MEDS: SODIUM CHLORIDE 0.9% 1,000 ML IV SCH ×2 (08:37→21:31)
[2017-03-01] MEDS: PYRIDOXINE 50 MG TABLET PO SCH (08:37)
[2017-03-01] MEDS: ISONIAZID 300 MG TABLET PO SCH (08:38)
[2017-03-01] MEDS: PYRAZINAMIDE 500 MG TABLET PO SCH (08:38)
[2017-03-01] MEDS: ETHAMBUTOL 400 MG TABLET PO SCH (08:38)
[2017-03-01] MEDS: RIFAMPIN 300 MG CAPSULE PO SCH ×2 (08:38→23:00)
[2017-03-01] MEDS: MORPHINE 2 MG/1 ML SYRINGE IV PRN ×2 (09:06→17:05)
[2017-03-01] MEDS: methylPREDNISolone SOD SUC 40 MG/1 ML VIAL IV SCH (09:07)
[2017-03-01] MEDS: MULTIVITAMIN LIQUID (CENTRUM) 60 ML BOTTLE PER TUBE SCH (09:07)
[2017-03-01] MEDS ORDERED: POTASSIUM CHLORIDE 20 MEQ TABLET PO ONE (11:19)
[2017-03-01 14:11] LABS: QuantiFERON-Tb Gold Pl Negative (Negative); TB1 Ag minus Nil Result 0.06 IU/mL
[2017-03-01] MEDS: DEXTROSE 50% 25 GM/50 ML VIAL IV PRN (18:35)
[2017-03-02] MEDS: ALBUTEROL/IPRATROPIUM 3 ML NEB RESP TX SCH ×4 (01:43→19:00)
[2017-03-02 06:29] LABS: Calcium 7.7 MG/DL (8.5-10.1); Osmolality,Calculated 258.8 MOS/KG (273-304); Potassium 3.7 MMOL/L (3.5-5.1)
[2017-03-02] MEDS: INSULIN REGULAR 100 UNIT/ML SUBCUT SCH ×3 (06:30→19:53)
[2017-03-02] MEDS: POTASSIUM CHLORIDE RIDER 10 MEQ in PREMIX 1 EACH IV PRN (07:19)
[2017-03-02 07:23] LABS: ABG Base Excess 4.5 MMOL/L (-2.5-2.5); ABG HCO3 28.5 MMOL/L (20-26); ABG Oxygen Saturation 96.5 % (95-100); ABG PCO2 50.4 MM HG (35-48); ABG PH 7.388 (7.35-7.45); ABG TCO2 27.9 MMOL/L (23-27)
[2017-03-02] MEDS: RIFAMPIN 300 MG CAPSULE PO SCH (08:39)
[2017-03-02] MEDS: PYRAZINAMIDE 500 MG TABLET PO SCH (08:39)
[2017-03-02] MEDS: PANTOPRAZOLE 40 MG VIAL IV SCH (08:39)
[2017-03-02] MEDS: ISONIAZID 300 MG TABLET PO SCH (08:39)
[2017-03-02] MEDS: PYRIDOXINE 50 MG TABLET PO SCH (08:39)
[2017-03-02] MEDS: methylPREDNISolone SOD SUC 40 MG/1 ML VIAL IV SCH (08:40)
[2017-03-02] MEDS: NYSTATIN 500,000 UNIT/5 ML UDCUP SWISH/SWAL SCH ×3 (08:40→21:49)
[2017-03-02] MEDS: ETHAMBUTOL 400 MG TABLET PO SCH (08:45)
[2017-03-02] MEDS: SODIUM CHLORIDE 0.9% 1,000 ML IV SCH (13:05)
[2017-03-02] MEDS: MULTIVITAMIN LIQUID (CENTRUM) 60 ML BOTTLE PER TUBE SCH (19:52)
[2017-03-03] MEDS ORDERED: MORPHINE 2 MG/1 ML SYRINGE ONE (00:07)
[2017-03-03] MEDS: ALBUTEROL/IPRATROPIUM 3 ML NEB RESP TX SCH ×4 (00:22→18:14)
[2017-03-03] MEDS: INSULIN REGULAR 100 UNIT/ML SUBCUT SCH ×3 (00:27→21:23)
[2017-03-03] MEDS: MORPHINE 2 MG/1 ML SYRINGE IV PRN ×3 (00:28→22:10)
[2017-03-03 05:01] LABS: ABG Base Excess 6.6 MMOL/L (-2.5-2.5); ABG HCO3 30.5 MMOL/L (20-26); ABG Oxygen Saturation 98.1 % (95-100); ABG PCO2 45.6 MM HG (35-48); ABG PH 7.447 (7.35-7.45); ABG PO2 96.7 MM HG (80-95); ABG TCO2 29.1 MMOL/L (23-27)
[2017-03-03] MEDS: SODIUM CHLORIDE 0.9% 1,000 ML IV SCH ×2 (08:05→21:05)
[2017-03-03 08:07] LABS: Basophils % 0.1 % (0.0-0.8); Eosinophils # 0.1 10*3/uL (0.0-0.87); Eosinophils % 1.2 % (0.00-10.9); Hematocrit 26.3 VOL% (42.0-52.0); Hemoglobin 9.8 GM/DL (14.0-18.0); Immature Granulocytes % 0.3 %; Immature Granulocytes Absolute 0.02 #; Lymphocytes # 0.3 10*3/uL (1.4-4.0); Mean Corpuscular HGB Conc 37.3 GM/DL (32-36); Mean Corpuscular Hemoglobin 33 PG (27-34); Mean Corpuscular Volume 89.5 FL (87-102); Mean Platelet Volume 9.3 FL (9.6-12.0); Monocytes # 0.5 10*3/uL (0.11-0.8); Monocytes % 6.7 % (1.7-12.7); Neutrophils % 87.7 % (38.7-73.9); Platelet Count 202 T/CUMM (130-400); Red Blood Count 2.94 MC/CUMM (3.8-5.5); Red Cell Distribution Width 13.7 % (9.3-17.3); White Blood Count 6.8 T/CUMM (4-12)
[2017-03-03 08:38] LABS: Calcium 7.3 MG/DL (8.5-10.1); Magnesium 1.7 MG/DL (1.8-2.4); Osmolality,Calculated 266.5 MOS/KG (273-304); Potassium 4.1 MMOL/L (3.5-5.1)
[2017-03-03 08:59] LABS: Band Neutrophils 2 % (0-10); Eosinophils 1 % (0-10); Hypochromasia 1+; Lymphocytes 8 % (20-55); Microcytosis Slight; Platelet Estimate Normal; Segmented Neutrophils 85 % (50-85); Total Cells Counted 100
[2017-03-03] MEDS: NYSTATIN 500,000 UNIT/5 ML UDCUP SWISH/SWAL SCH ×3 (20:30→21:21)
[2017-03-03] MEDS: ISONIAZID 300 MG TABLET PO SCH (20:30)
[2017-03-03] MEDS: ETHAMBUTOL 400 MG TABLET PO SCH (20:30)
[2017-03-03] MEDS: PYRAZINAMIDE 500 MG TABLET PO SCH (20:30)
[2017-03-03] MEDS: RIFAMPIN 300 MG CAPSULE PO SCH (20:30)
[2017-03-03] MEDS: PYRIDOXINE 50 MG TABLET PO SCH (20:30)
[2017-03-03] MEDS: MULTIVITAMIN LIQUID (CENTRUM) 60 ML BOTTLE PER TUBE SCH (21:20)
[2017-03-03] MEDS: PANTOPRAZOLE 40 MG VIAL IV SCH (21:22)
[2017-03-03] MEDS: methylPREDNISolone SOD SUC 40 MG/1 ML VIAL IV SCH (21:23)
[2017-03-03] MEDS ORDERED: MORPHINE 2 MG/1 ML SYRINGE IV PRN (22:30)
[2017-03-03] MEDS: PROPOFOL 1,000 MG/100 ML BOTTLE IV SCH ×2 (22:34→22:35)
[2017-03-04] MEDS: INSULIN REGULAR 100 UNIT/ML SUBCUT SCH ×4 (00:27→17:43)
[2017-03-04] MEDS: ALBUTEROL/IPRATROPIUM 3 ML NEB RESP TX SCH ×4 (00:35→20:04)
[2017-03-04 04:09] LABS: ABG Base Excess 7.2 MMOL/L (-2.5-2.5); ABG HCO3 31.8 MMOL/L (20-26); ABG Oxygen Saturation 97.1 % (95-100); ABG PCO2 45.6 MM HG (35-48); ABG PH 7.461 (7.35-7.45); ABG PO2 102.9 MM HG (80-95); ABG TCO2 33.2 MMOL/L (23-27)
[2017-03-04 05:27] LABS: Hematocrit 24.1 VOL% (42.0-52.0); Hemoglobin 8.9 GM/DL (14.0-18.0); Immature Granulocytes % 0.4 %; Immature Granulocytes Absolute 0.02 #; Lymphocytes # 0.1 10*3/uL (1.4-4.0); Lymphocytes % 1.9 % (21.2-54.2); Mean Corpuscular HGB Conc 36.9 GM/DL (32-36); Mean Corpuscular Hemoglobin 34 PG (27-34); Mean Platelet Volume 9.3 FL (9.6-12.0); Monocytes # 0.2 10*3/uL (0.11-0.8); Monocytes % 3.8 % (1.7-12.7); Neutrophils % 93.9 % (38.7-73.9); Platelet Count 173 T/CUMM (130-400); Red Blood Count 2.62 MC/CUMM (3.8-5.5); Red Cell Distribution Width 14.1 % (9.3-17.3); White Blood Count 5.3 T/CUMM (4-12)
[2017-03-04 05:47] LABS: Calcium 7.4 MG/DL (8.5-10.1); Magnesium 1.8 MG/DL (1.8-2.4); Osmolality,Calculated 271.2 MOS/KG (273-304); Potassium 3.7 MMOL/L (3.5-5.1)
[2017-03-04 07:11] LABS: Band Neutrophils 1 % (0-10); Lymphocytes 2 % (20-55); Platelet Estimate Normal; Segmented Neutrophils 92 % (50-85); Total Cells Counted 100
[2017-03-04] MEDS: PYRAZINAMIDE 500 MG TABLET PO SCH (09:30)
[2017-03-04] MEDS: ETHAMBUTOL 400 MG TABLET PO SCH (09:46)
[2017-03-04] MEDS: ISONIAZID 300 MG TABLET PO SCH (09:46)
[2017-03-04] MEDS: NYSTATIN 500,000 UNIT/5 ML UDCUP SWISH/SWAL SCH ×4 (09:46→21:26)
[2017-03-04] MEDS: PYRIDOXINE 50 MG TABLET PO SCH (09:46)
[2017-03-04] MEDS: RIFAMPIN 300 MG CAPSULE PO SCH (09:47)
[2017-03-04] MEDS: PANTOPRAZOLE 40 MG VIAL IV SCH (09:47)
[2017-03-04] MEDS: methylPREDNISolone SOD SUC 40 MG/1 ML VIAL IV SCH (09:47)
[2017-03-04] MEDS: MULTIVITAMIN LIQUID (CENTRUM) 60 ML BOTTLE PER TUBE SCH (10:44)
[2017-03-04] MEDS: SODIUM CHLORIDE 0.9% 1,000 ML IV SCH (10:44)
[2017-03-04] MEDS ORDERED: CHOLECALCIFEROL 1,000 UNIT TABLET PO ONE (12:01)
[2017-03-04] MEDS: POTASSIUM CHLORIDE RIDER 10 MEQ in PREMIX 1 EACH IV PRN (13:59)
[2017-03-04] MEDS: PROPOFOL 1,000 MG/100 ML BOTTLE IV SCH (21:26)
[2017-03-05] MEDS: INSULIN REGULAR 100 UNIT/ML SUBCUT SCH ×4 (00:29→18:11)
[2017-03-05] MEDS: SODIUM CHLORIDE 0.9% 1,000 ML IV SCH (00:31)
[2017-03-05] MEDS: ALBUTEROL/IPRATROPIUM 3 ML NEB RESP TX SCH ×4 (01:07→19:23)
[2017-03-05 04:02] LABS: Allen Test Positive; Pt O2 Delivery Device Ventilator
[2017-03-05 04:03] LABS: ABG Base Excess 6.4 MMOL/L (-2.5-2.5); ABG HCO3 30.2 MMOL/L (20-26); ABG Oxygen Saturation 96.3 % (95-100); ABG PCO2 41.7 MM HG (35-48); ABG PH 7.474 (7.35-7.45); ABG PO2 77.9 MM HG (80-95); ABG TCO2 27.8 MMOL/L (23-27)
[2017-03-05 05:23] LABS: Basophils % 0.2 % (0.0-0.8); Eosinophils % 0.7 % (0.00-10.9); Hematocrit 24.2 VOL% (42.0-52.0); Hemoglobin 8.8 GM/DL (14.0-18.0); Immature Granulocytes % 0.5 %; Immature Granulocytes Absolute 0.03 #; Lymphocytes # 0.3 10*3/uL (1.4-4.0); Lymphocytes % 5.2 % (21.2-54.2); Mean Corpuscular HGB Conc 36.4 GM/DL (32-36); Mean Corpuscular Hemoglobin 33 PG (27-34); Mean Corpuscular Volume 91.7 FL (87-102); Mean Platelet Volume 9.4 FL (9.6-12.0); Monocytes # 0.4 10*3/uL (0.11-0.8); Monocytes % 7.9 % (1.7-12.7); Neutrophils # 4.8 10*3/uL (1.4-7.4); Neutrophils % 85.5 % (38.7-73.9); Platelet Count 190 T/CUMM (130-400); Red Blood Count 2.64 MC/CUMM (3.8-5.5); Red Cell Distribution Width 13.9 % (9.3-17.3); White Blood Count 5.6 T/CUMM (4-12)
[2017-03-05 05:47] LABS: Albumin 1.5 G/DL (3.4-5.0); Bilirubin,Total 0.8 MG/DL (0.2-1.0); Calcium 7.4 MG/DL (8.5-10.1); Potassium 4.4 MMOL/L (3.5-5.1); Total Protein 4.3 G/DL (6.4-8.3)
[2017-03-05] MEDS ORDERED: FUROSEMIDE 40 MG/4 ML VIAL IV ONE (06:55)
[2017-03-05] MEDS: PANTOPRAZOLE 40 MG VIAL IV SCH (08:35)
[2017-03-05] MEDS: NYSTATIN 500,000 UNIT/5 ML UDCUP SWISH/SWAL SCH ×4 (08:35→21:27)
[2017-03-05] MEDS: ISONIAZID 300 MG TABLET PO SCH (08:36)
[2017-03-05] MEDS: ETHAMBUTOL 400 MG TABLET PO SCH (08:36)
[2017-03-05] MEDS: RIFAMPIN 300 MG CAPSULE PO SCH (08:36)
[2017-03-05] MEDS: PYRIDOXINE 50 MG TABLET PO SCH (08:37)
[2017-03-05] MEDS: MULTIVITAMIN LIQUID (CENTRUM) 60 ML BOTTLE PER TUBE SCH (08:39)
[2017-03-05] MEDS ORDERED: SODIUM CHLORIDE 0.9% 1,000 ML IV PRN (08:53)
[2017-03-05] MEDS: PROPOFOL 1,000 MG/100 ML BOTTLE IV SCH (09:45)
[2017-03-05] MEDS: PYRAZINAMIDE 500 MG TABLET PO SCH (11:53)
[2017-03-05 23:07] LABS: Hematocrit 33.5 VOL% (42.0-52.0); Hemoglobin 12.2 GM/DL (14.0-18.0)
[2017-03-06] MEDS: INSULIN REGULAR 100 UNIT/ML SUBCUT SCH ×4 (00:29→18:24)
[2017-03-06] MEDS: ALBUTEROL/IPRATROPIUM 3 ML NEB RESP TX SCH ×4 (01:04→19:59)
[2017-03-06 02:31] LABS: ABG Base Excess 10.3 MMOL/L (-2.5-2.5); ABG HCO3 34.8 MMOL/L (20-26); ABG Oxygen Saturation 96.4 % (95-100); ABG PCO2 45.7 MM HG (35-48); ABG PH 7.499 (7.35-7.45); ABG PO2 83.8 MM HG (80-95); ABG TCO2 36.2 MMOL/L (23-27); Allen Test Positive; Pt O2 Delivery Device Ventilator
[2017-03-06 04:52] LABS: Basophils % 0.1 % (0.0-0.8); Eosinophils # 0.1 10*3/uL (0.0-0.87); Eosinophils % 1.4 % (0.00-10.9); Hematocrit 33.2 VOL% (42.0-52.0); Immature Granulocytes % 0.3 %; Immature Granulocytes Absolute 0.02 #; Lymphocytes # 0.3 10*3/uL (1.4-4.0); Lymphocytes % 3.7 % (21.2-54.2); Mean Corpuscular HGB Conc 36.1 GM/DL (32-36); Mean Corpuscular Hemoglobin 32 PG (27-34); Mean Corpuscular Volume 88.3 FL (87-102); Mean Platelet Volume 9.2 FL (9.6-12.0); Monocytes # 0.5 10*3/uL (0.11-0.8); Monocytes % 6.6 % (1.7-12.7); Neutrophils # 6.5 10*3/uL (1.4-7.4); Neutrophils % 87.9 % (38.7-73.9); Platelet Count 178 T/CUMM (130-400); Red Blood Count 3.76 MC/CUMM (3.8-5.5); Red Cell Distribution Width 15.7 % (9.3-17.3); White Blood Count 7.4 T/CUMM (4-12)
[2017-03-06 05:22] LABS: Band Neutrophils 1 % (0-10); Giant Platelets Few; Hypochromasia 1+; Lymphocytes 5 % (20-55); Platelet Estimate Normal; Segmented Neutrophils 91 % (50-85); Total Cells Counted 100
[2017-03-06 05:58] LABS: Albumin 1.7 G/DL (3.4-5.0); Bilirubin,Total 1.8 MG/DL (0.2-1.0); Calcium 7.4 MG/DL (8.5-10.1); Potassium 3.7 MMOL/L (3.5-5.1); Total Protein 4.5 G/DL (6.4-8.3)
[2017-03-06] MEDS: PROPOFOL 1,000 MG/100 ML BOTTLE IV SCH ×3 (06:45→18:24)
[2017-03-06 08:40] LABS: Allen Test Positive; Pt O2 Delivery Device Ventilator
[2017-03-06 08:41] LABS: ABG Base Excess 8.8 MMOL/L (-2.5-2.5); ABG HCO3 32.5 MMOL/L (20-26); ABG Oxygen Saturation 96.7 % (95-100); ABG PH 7.473 (7.35-7.45); ABG PO2 81.9 MM HG (80-95); ABG TCO2 29.6 MMOL/L (23-27)
[2017-03-06] MEDS: ETHAMBUTOL 400 MG TABLET PO SCH (09:31)
[2017-03-06] MEDS: PYRIDOXINE 50 MG TABLET PO SCH (09:31)
[2017-03-06] MEDS: PYRAZINAMIDE 500 MG TABLET PO SCH (09:31)
[2017-03-06] MEDS: ISONIAZID 300 MG TABLET PO SCH (09:31)
[2017-03-06] MEDS: RIFAMPIN 300 MG CAPSULE PO SCH (09:31)
[2017-03-06] MEDS: PANTOPRAZOLE 40 MG VIAL IV SCH (09:32)
[2017-03-06] MEDS: NYSTATIN 500,000 UNIT/5 ML UDCUP SWISH/SWAL SCH ×4 (09:32→20:04)
[2017-03-06] MEDS: POTASSIUM CHLORIDE RIDER 10 MEQ in PREMIX 1 EACH IV PRN ×2 (09:33→11:35)
[2017-03-06] MEDS: MULTIVITAMIN LIQUID (CENTRUM) 60 ML BOTTLE PER TUBE SCH (09:39)
[2017-03-07] MEDS: INSULIN REGULAR 100 UNIT/ML SUBCUT SCH ×4 (01:39→17:26)
[2017-03-07] MEDS: ALBUTEROL/IPRATROPIUM 3 ML NEB RESP TX SCH ×4 (02:30→19:16)
[2017-03-07 02:31] LABS: ABG Base Excess 5.6 MMOL/L (-2.5-2.5); ABG HCO3 29.5 MMOL/L (20-26); ABG Oxygen Saturation 98.8 % (95-100); ABG PCO2 43.5 MM HG (35-48); ABG PH 7.451 (7.35-7.45); ABG TCO2 26.7 MMOL/L (23-27)
[2017-03-07 04:48] LABS: Basophils % 0.3 % (0.0-0.8); Eosinophils # 0.1 10*3/uL (0.0-0.87); Eosinophils % 1.7 % (0.00-10.9); Hematocrit 33.8 VOL% (42.0-52.0); Hemoglobin 12.2 GM/DL (14.0-18.0); Immature Granulocytes % 0.4 %; Immature Granulocytes Absolute 0.03 #; Lymphocytes # 0.3 10*3/uL (1.4-4.0); Lymphocytes % 3.8 % (21.2-54.2); Mean Corpuscular HGB Conc 36.1 GM/DL (32-36); Mean Corpuscular Hemoglobin 32 PG (27-34); Mean Corpuscular Volume 89.2 FL (87-102); Mean Platelet Volume 9.2 FL (9.6-12.0); Monocytes # 0.5 10*3/uL (0.11-0.8); Monocytes % 6.4 % (1.7-12.7); Neutrophils # 6.3 10*3/uL (1.4-7.4); Neutrophils % 87.4 % (38.7-73.9); Platelet Count 166 T/CUMM (130-400); Red Blood Count 3.79 MC/CUMM (3.8-5.5); Red Cell Distribution Width 15.4 % (9.3-17.3); White Blood Count 7.2 T/CUMM (4-12)
[2017-03-07 05:16] LABS: Band Neutrophils 3 % (0-10); Eosinophils 1 % (0-10); Myelocytes 1 %; Segmented Neutrophils 92 % (50-85); Total Cells Counted 100
[2017-03-07 05:18] LABS: Hypochromasia 1+; Ovalocytes 1+; Platelet Estimate Adequate
[2017-03-07 05:20] LABS: Albumin 1.6 G/DL (3.4-5.0); Bilirubin,Direct 1.22 MG/DL (0.0-0.20); Bilirubin,Indirect 0.4 MG/DL (0.0-1.0); Bilirubin,Total 1.6 MG/DL (0.2-1.0); Magnesium 1.8 MG/DL (1.8-2.4); Osmolality,Calculated 272.2 MOS/KG (273-304); Potassium 3.8 MMOL/L (3.5-5.1); Total Protein 4.6 G/DL (6.4-8.3)
[2017-03-07] MEDS: POTASSIUM CHLORIDE RIDER 10 MEQ in PREMIX 1 EACH IV PRN ×2 (06:19→07:21)
[2017-03-07 07:54] LABS: INR 1.2; PT Patient Result 12.7 SECS
[2017-03-07 08:05] LABS: Partial Thromboplastin Time 41.1 SECS (0-40)
[2017-03-07] MEDS: PANTOPRAZOLE 40 MG VIAL IV SCH (08:32)
[2017-03-07] MEDS: RIFAMPIN 300 MG CAPSULE PO SCH (08:33)
[2017-03-07] MEDS: MULTIVITAMIN LIQUID (CENTRUM) 60 ML BOTTLE PER TUBE SCH (08:34)
[2017-03-07] MEDS: ISONIAZID 300 MG TABLET PO SCH (08:34)
[2017-03-07] MEDS: PYRIDOXINE 50 MG TABLET PO SCH (08:34)
[2017-03-07] MEDS: ETHAMBUTOL 400 MG TABLET PO SCH (08:34)
[2017-03-07] MEDS: NYSTATIN 500,000 UNIT/5 ML UDCUP SWISH/SWAL SCH ×4 (08:34→20:28)
[2017-03-07] MEDS: PYRAZINAMIDE 500 MG TABLET PO SCH (08:34)
[2017-03-07] MEDS: MORPHINE 2 MG/1 ML SYRINGE IV PRN (22:17)
[2017-03-07] MEDS: PROPOFOL 1,000 MG/100 ML BOTTLE IV SCH (23:50)
[2017-03-08] MEDS: INSULIN REGULAR 100 UNIT/ML SUBCUT SCH ×5 (00:52→23:39)
[2017-03-08] MEDS: ALBUTEROL/IPRATROPIUM 3 ML NEB RESP TX SCH ×4 (01:02→21:02)
[2017-03-08 04:43] LABS: ABG Base Excess 3.1 MMOL/L (-2.5-2.5); ABG HCO3 27.2 MMOL/L (20-26); ABG Oxygen Saturation 98.1 % (95-100); ABG PCO2 44.5 MM HG (35-48); ABG PH 7.411 (7.35-7.45); ABG TCO2 24.8 MMOL/L (23-27); Allen Test Positive; Pt O2 Delivery Device Ventilator
[2017-03-08] MEDS ORDERED: MORPHINE 2 MG/1 ML SYRINGE IV ONE (07:20)
[2017-03-08 09:26] LABS: Calcium 7.6 MG/DL (8.5-10.1); Osmolality,Calculated 267.5 MOS/KG (273-304); Potassium 4.8 MMOL/L (3.5-5.1)
[2017-03-08] MEDS: ETHAMBUTOL 400 MG TABLET PO SCH (09:49)
[2017-03-08] MEDS: PYRAZINAMIDE 500 MG TABLET PO SCH (09:49)
[2017-03-08] MEDS: PYRIDOXINE 50 MG TABLET PO SCH (09:49)
[2017-03-08] MEDS: NYSTATIN 500,000 UNIT/5 ML UDCUP SWISH/SWAL SCH ×4 (09:49→21:06)
[2017-03-08] MEDS: RIFAMPIN 300 MG CAPSULE PO SCH (09:50)
[2017-03-08] MEDS: PANTOPRAZOLE 40 MG VIAL IV SCH (09:51)
[2017-03-08] MEDS: MULTIVITAMIN LIQUID (CENTRUM) 60 ML BOTTLE PER TUBE SCH (10:15)
[2017-03-08] MEDS: ISONIAZID 300 MG TABLET PO SCH (10:15)
[2017-03-08 10:42] LABS: Basophils % 0.1 % (0.0-0.8); Eosinophils # 0.1 10*3/uL (0.0-0.87); Eosinophils % 0.6 % (0.00-10.9); Hematocrit 33.5 VOL% (42.0-52.0); Hemoglobin 12.1 GM/DL (14.0-18.0); Immature Granulocytes % 0.5 %; Immature Granulocytes Absolute 0.04 #; Lymphocytes # 0.3 10*3/uL (1.4-4.0); Lymphocytes % 3.8 % (21.2-54.2); Mean Corpuscular HGB Conc 36.1 GM/DL (32-36); Mean Corpuscular Hemoglobin 32 PG (27-34); Mean Corpuscular Volume 88.6 FL (87-102); Mean Platelet Volume 9.1 FL (9.6-12.0); Monocytes # 0.5 10*3/uL (0.11-0.8); Monocytes % 5.6 % (1.7-12.7); Neutrophils # 7.6 10*3/uL (1.4-7.4); Neutrophils % 89.4 % (38.7-73.9); Platelet Count 143 T/CUMM (130-400); Red Blood Count 3.78 MC/CUMM (3.8-5.5); Red Cell Distribution Width 15.4 % (9.3-17.3); White Blood Count 8.4 T/CUMM (4-12)
[2017-03-08 11:51] LABS: Giant Platelets Few; Hypochromasia 1+; Platelet Estimate Normal
[2017-03-08] MEDS: MORPHINE 2 MG/1 ML SYRINGE IV PRN (14:11)
[2017-03-08] MEDS: PROPOFOL 1,000 MG/100 ML BOTTLE IV SCH ×2 (14:11→21:06)
[2017-03-09] MEDS: MORPHINE 2 MG/1 ML SYRINGE IV PRN (00:16)
[2017-03-09] MEDS: ALBUTEROL/IPRATROPIUM 3 ML NEB RESP TX SCH ×4 (01:52→18:30)
[2017-03-09] MEDS: PROPOFOL 1,000 MG/100 ML BOTTLE IV SCH ×2 (02:18→14:00)
[2017-03-09 04:11] LABS: ABG Base Excess 1.6 MMOL/L (-2.5-2.5); ABG HCO3 25.8 MMOL/L (20-26); ABG Oxygen Saturation 97.9 % (95-100); ABG PCO2 41.6 MM HG (35-48); ABG TCO2 23.3 MMOL/L (23-27); Allen Test Positive; Pt O2 Delivery Device Ventilator
[2017-03-09] MEDS: INSULIN REGULAR 100 UNIT/ML SUBCUT SCH ×3 (06:14→19:38)
[2017-03-09 08:15] LABS: Basophils % 0.1 % (0.0-0.8); Eosinophils # 0.1 10*3/uL (0.0-0.87); Eosinophils % 0.9 % (0.00-10.9); Hematocrit 36.2 VOL% (42.0-52.0); Immature Granulocytes % 0.7 %; Immature Granulocytes Absolute 0.06 #; Lymphocytes # 0.3 10*3/uL (1.4-4.0); Mean Corpuscular HGB Conc 35.9 GM/DL (32-36); Mean Corpuscular Hemoglobin 32 PG (27-34); Mean Platelet Volume 9.3 FL (9.6-12.0); Monocytes # 0.6 10*3/uL (0.11-0.8); Monocytes % 7.1 % (1.7-12.7); Neutrophils % 88.2 % (38.7-73.9); Platelet Count 141 T/CUMM (130-400); Red Blood Count 4.02 MC/CUMM (3.8-5.5); Red Cell Distribution Width 15.2 % (9.3-17.3)
[2017-03-09 08:53] LABS: Calcium 7.2 MG/DL (8.5-10.1); Osmolality,Calculated 266.5 MOS/KG (273-304); Potassium 4.6 MMOL/L (3.5-5.1); Prealbumin 4.5 MG/DL (20-40)
[2017-03-09] MEDS: PANTOPRAZOLE 40 MG VIAL IV SCH (09:02)
[2017-03-09 09:30] LABS: Band Neutrophils 1 % (0-10); Eosinophils 1 % (0-10); Hypochromasia 1+; Lymphocytes 4 % (20-55); Microcytosis Slight; Platelet Estimate Adequate; Segmented Neutrophils 86 % (50-85); Total Cells Counted 100
[2017-03-09] MEDS: ISONIAZID 300 MG TABLET PO SCH (09:50)
[2017-03-09] MEDS: MULTIVITAMIN LIQUID (CENTRUM) 60 ML BOTTLE PER TUBE SCH (09:50)
[2017-03-09] MEDS: PYRIDOXINE 50 MG TABLET PO SCH (09:51)
[2017-03-09] MEDS: ETHAMBUTOL 400 MG TABLET PO SCH (09:51)
[2017-03-09] MEDS: RIFAMPIN 300 MG CAPSULE PO SCH (09:51)
[2017-03-09] MEDS: NYSTATIN 500,000 UNIT/5 ML UDCUP SWISH/SWAL SCH ×4 (09:51→21:29)
[2017-03-09] MEDS: PYRAZINAMIDE 500 MG TABLET PO SCH (09:51)
[2017-03-10] MEDS: ALBUTEROL/IPRATROPIUM 3 ML NEB RESP TX SCH ×4 (01:00→19:40)
[2017-03-10 03:42] LABS: ABG Base Excess 4.1 MMOL/L (-2.5-2.5); ABG HCO3 28.2 MMOL/L (20-26); ABG Oxygen Saturation 97.5 % (95-100); ABG PCO2 40.3 MM HG (35-48); ABG PH 7.463 (7.35-7.45); ABG PO2 99.9 MM HG (80-95); ABG TCO2 29.4 MMOL/L (23-27); Pt O2 Delivery Device Ventilator
[2017-03-10] MEDS: PROPOFOL 1,000 MG/100 ML BOTTLE IV SCH ×5 (03:49→22:35)
[2017-03-10 04:36] LABS: Basophils % 0.2 % (0.0-0.8); Eosinophils # 0.1 10*3/uL (0.0-0.87); Eosinophils % 1.1 % (0.00-10.9); Immature Granulocytes % 0.6 %; Immature Granulocytes Absolute 0.05 #; Lymphocytes # 0.3 10*3/uL (1.4-4.0); Lymphocytes % 3.5 % (21.2-54.2); Mean Corpuscular HGB Conc 36.4 GM/DL (32-36); Mean Corpuscular Hemoglobin 33 PG (27-34); Mean Corpuscular Volume 89.4 FL (87-102); Mean Platelet Volume 9.4 FL (9.6-12.0); Monocytes # 0.7 10*3/uL (0.11-0.8); Monocytes % 8.2 % (1.7-12.7); Neutrophils # 7.2 10*3/uL (1.4-7.4); Neutrophils % 86.4 % (38.7-73.9); Platelet Count 147 T/CUMM (130-400); Red Blood Count 3.69 MC/CUMM (3.8-5.5); Red Cell Distribution Width 14.8 % (9.3-17.3); White Blood Count 8.3 T/CUMM (4-12)
[2017-03-10 05:19] LABS: Osmolality,Calculated 267.5 MOS/KG (273-304); Potassium 4.2 MMOL/L (3.5-5.1)
[2017-03-10] MEDS: INSULIN REGULAR 100 UNIT/ML SUBCUT SCH (06:11)
[2017-03-10 07:38] LABS: Hypochromasia 1+; Lymphocytes 9 % (20-55); Platelet Estimate Adequate; Segmented Neutrophils 89 % (50-85); Total Cells Counted 100
[2017-03-10] MEDS: PANTOPRAZOLE 40 MG VIAL IV SCH (09:30)
[2017-03-10] MEDS: NYSTATIN 500,000 UNIT/5 ML UDCUP SWISH/SWAL SCH ×4 (09:55→22:30)
[2017-03-10] MEDS: RIFAMPIN 300 MG CAPSULE PO SCH (09:55)
[2017-03-10] MEDS: MULTIVITAMIN LIQUID (CENTRUM) 60 ML BOTTLE PER TUBE SCH (09:55)
[2017-03-10] MEDS: ETHAMBUTOL 400 MG TABLET PO SCH (09:55)
[2017-03-10] MEDS: PYRIDOXINE 50 MG TABLET PO SCH (09:55)
[2017-03-10] MEDS: ISONIAZID 300 MG TABLET PO SCH (09:55)
[2017-03-10] MEDS: PYRAZINAMIDE 500 MG TABLET PO SCH (09:55)
[2017-03-11] MEDS: ALBUTEROL/IPRATROPIUM 3 ML NEB RESP TX SCH ×4 (00:15→19:40)
[2017-03-11 02:58] LABS: ABG Base Excess 5.9 MMOL/L (-2.5-2.5); ABG HCO3 29.7 MMOL/L (20-26); ABG Oxygen Saturation 97.9 % (95-100); ABG PCO2 40.7 MM HG (35-48); ABG PH 7.475 (7.35-7.45); ABG PO2 94.7 MM HG (80-95); ABG TCO2 26.5 MMOL/L (23-27); Allen Test Positive; Pt O2 Delivery Device Ventilator
[2017-03-11] MEDS: ISONIAZID 300 MG TABLET PO SCH (08:05)
[2017-03-11] MEDS: MULTIVITAMIN LIQUID (CENTRUM) 60 ML BOTTLE PER TUBE SCH (08:05)
[2017-03-11] MEDS: PANTOPRAZOLE 40 MG VIAL IV SCH (08:06)
[2017-03-11] MEDS: ETHAMBUTOL 400 MG TABLET PO SCH (08:06)
[2017-03-11] MEDS: NYSTATIN 500,000 UNIT/5 ML UDCUP SWISH/SWAL SCH ×4 (08:06→21:48)
[2017-03-11] MEDS: PYRIDOXINE 50 MG TABLET PO SCH (08:07)
[2017-03-11] MEDS: RIFAMPIN 300 MG CAPSULE PO SCH (08:07)
[2017-03-11] MEDS: PYRAZINAMIDE 500 MG TABLET PO SCH (08:07)
[2017-03-11] MEDS: PROPOFOL 1,000 MG/100 ML BOTTLE IV SCH (10:02)
[2017-03-11] MEDS: MORPHINE 2 MG/1 ML SYRINGE IV PRN ×2 (10:02→15:22)
[2017-03-12] MEDS: ALBUTEROL/IPRATROPIUM 3 ML NEB RESP TX SCH ×4 (01:02→18:55)
[2017-03-12 03:17] LABS: ABG Base Excess 6.8 MMOL/L (-2.5-2.5); ABG HCO3 31.6 MMOL/L (20-26); ABG PH 7.455 (7.35-7.45); ABG PO2 86.3 MM HG (80-95); Pt O2 Delivery Device Ventilator
[2017-03-12 05:41] LABS: Basophils % 0.4 % (0.0-0.8); Eosinophils # 0.1 10*3/uL (0.0-0.87); Eosinophils % 1.4 % (0.00-10.9); Hematocrit 31.3 VOL% (42.0-52.0); Hemoglobin 11.2 GM/DL (14.0-18.0); Immature Granulocytes % 0.6 %; Immature Granulocytes Absolute 0.04 #; Lymphocytes # 0.3 10*3/uL (1.4-4.0); Lymphocytes % 4.7 % (21.2-54.2); Mean Corpuscular HGB Conc 35.8 GM/DL (32-36); Mean Corpuscular Hemoglobin 32 PG (27-34); Mean Corpuscular Volume 89.9 FL (87-102); Mean Platelet Volume 9.7 FL (9.6-12.0); Monocytes % 13.6 % (1.7-12.7); Neutrophils # 5.7 10*3/uL (1.4-7.4); Neutrophils % 79.3 % (38.7-73.9); Platelet Count 186 T/CUMM (130-400); Red Blood Count 3.48 MC/CUMM (3.8-5.5); Red Cell Distribution Width 15.3 % (9.3-17.3); White Blood Count 7.2 T/CUMM (4-12)
[2017-03-12 06:05] LABS: Band Neutrophils 1 % (0-10); Burr Cells Slight; Giant Platelets Few; Hypochromasia 1+; Lymphocytes 5 % (20-55); Microcytosis Slight; Ovalocytes Slight; Platelet Estimate Normal; Segmented Neutrophils 84 % (50-85); Total Cells Counted 100
[2017-03-12 06:11] LABS: Magnesium 2.1 MG/DL (1.8-2.4); Prealbumin < 3.0 MG/DL (20-40)
[2017-03-12 07:06] LABS: Albumin 1.5 G/DL (3.4-5.0); Bilirubin,Direct 6.9 MG/DL (0.0-0.20); Bilirubin,Indirect 1.6 MG/DL (0.0-1.0); Bilirubin,Total 8.5 MG/DL (0.2-1.0); Calcium 7.4 MG/DL (8.5-10.1); Osmolality,Calculated 274.1 MOS/KG (273-304); Potassium 4.3 MMOL/L (3.5-5.1); Total Protein 4.6 G/DL (6.4-8.3)
[2017-03-12] MEDS: PROPOFOL 1,000 MG/100 ML BOTTLE IV SCH ×2 (07:43→18:31)
[2017-03-12] MEDS ORDERED: TOBRAMYCIN 80 MG/2 ML VIAL RESP TX SCH (09:00)
[2017-03-12] MEDS: ISONIAZID 300 MG TABLET PO SCH (10:24)
[2017-03-12] MEDS: MORPHINE 2 MG/1 ML SYRINGE IV PRN ×2 (10:48→17:17)
[2017-03-12] MEDS: NYSTATIN 500,000 UNIT/5 ML UDCUP SWISH/SWAL SCH ×4 (10:49→20:10)
[2017-03-12] MEDS: PANTOPRAZOLE 40 MG VIAL IV SCH (10:49)
[2017-03-12] MEDS: RIFAMPIN 300 MG CAPSULE PO SCH (10:57)
[2017-03-12] MEDS: ETHAMBUTOL 400 MG TABLET PO SCH (10:57)
[2017-03-12] MEDS: PYRAZINAMIDE 500 MG TABLET PO SCH (10:57)
[2017-03-12] MEDS: PYRIDOXINE 50 MG TABLET PO SCH (10:57)
[2017-03-12] MEDS: MULTIVITAMIN LIQUID (CENTRUM) 60 ML BOTTLE PER TUBE SCH (10:59)
[2017-03-12] MEDS: LEVOFLOXACIN INJ 500 MG in PREMIX 1 EACH IV SCH (11:16)
[2017-03-12] MEDS: AMIKACIN 300 MG in SODIUM CHLORIDE 0.9% 100 ML IV SCH (17:05)
[2017-03-12] MEDS: ACETAMINOPHEN 325 MG TABLET PO PRN (20:10)
[2017-03-13] MEDS: AMIKACIN 300 MG in SODIUM CHLORIDE 0.9% 100 ML IV SCH ×2 (02:53→15:49)
[2017-03-13] MEDS: PROPOFOL 1,000 MG/100 ML BOTTLE IV SCH ×3 (04:16→17:56)
[2017-03-13] MEDS: ALBUTEROL/IPRATROPIUM 3 ML NEB RESP TX SCH ×4 (06:08→20:43)
[2017-03-13] MEDS: ETHAMBUTOL 400 MG TABLET PO SCH (09:13)
[2017-03-13] MEDS: RIFAMPIN 300 MG CAPSULE PO SCH (09:13)
[2017-03-13] MEDS: PYRAZINAMIDE 500 MG TABLET PO SCH (09:13)
[2017-03-13] MEDS: MULTIVITAMIN LIQUID (CENTRUM) 60 ML BOTTLE PER TUBE SCH (09:14)
[2017-03-13] MEDS: PYRIDOXINE 50 MG TABLET PO SCH (09:14)
[2017-03-13] MEDS: LEVOFLOXACIN INJ 500 MG in PREMIX 1 EACH IV SCH (09:14)
[2017-03-13] MEDS: PANTOPRAZOLE 40 MG VIAL IV SCH (09:14)
[2017-03-13] MEDS: NYSTATIN 500,000 UNIT/5 ML UDCUP SWISH/SWAL SCH ×4 (09:38→20:41)
[2017-03-14] MEDS: ALBUTEROL/IPRATROPIUM 3 ML NEB RESP TX SCH ×4 (01:15→19:20)
[2017-03-14] MEDS: AMIKACIN 300 MG in SODIUM CHLORIDE 0.9% 100 ML IV SCH (03:45)
[2017-03-14 04:20] LABS: ABG Base Excess 4.6 MMOL/L (-2.5-2.5); ABG HCO3 28.6 MMOL/L (20-26); ABG Oxygen Saturation 98.2 % (95-100); ABG PCO2 46.8 MM HG (35-48); ABG PH 7.414 (7.35-7.45); Allen Test Positive; Pt O2 Delivery Device Ventilator
[2017-03-14] MEDS: PROPOFOL 1,000 MG/100 ML BOTTLE IV SCH ×3 (05:47→21:35)
[2017-03-14 06:17] LABS: Albumin 1.3 G/DL (3.4-5.0); Bilirubin,Total 9.6 MG/DL (0.2-1.0); Calcium 7.9 MG/DL (8.5-10.1); Osmolality,Calculated 277.1 MOS/KG (273-304); Potassium 4.2 MMOL/L (3.5-5.1); Total Protein 4.7 G/DL (6.4-8.3)
[2017-03-14] MEDS: RIFAMPIN 300 MG CAPSULE PO SCH (09:16)
[2017-03-14] MEDS: NYSTATIN 500,000 UNIT/5 ML UDCUP SWISH/SWAL SCH ×4 (09:16→21:20)
[2017-03-14] MEDS: ETHAMBUTOL 400 MG TABLET PO SCH (09:18)
[2017-03-14] MEDS: PYRAZINAMIDE 500 MG TABLET PO SCH (09:18)
[2017-03-14] MEDS: PYRIDOXINE 50 MG TABLET PO SCH (09:19)
[2017-03-14] MEDS: PANTOPRAZOLE 40 MG VIAL IV SCH (09:20)
[2017-03-14] MEDS: LEVOFLOXACIN INJ 500 MG in PREMIX 1 EACH IV SCH (09:24)
[2017-03-14] MEDS: MULTIVITAMIN LIQUID (CENTRUM) 60 ML BOTTLE PER TUBE SCH (09:38)
[2017-03-14] MEDS: MORPHINE 2 MG/1 ML SYRINGE IV PRN (21:35)
[2017-03-15] MEDS: MORPHINE 2 MG/1 ML SYRINGE IV PRN (00:48)
[2017-03-15] MEDS: ALBUTEROL/IPRATROPIUM 3 ML NEB RESP TX SCH ×4 (01:04→20:05)
[2017-03-15 04:16] LABS: Allen Test Positive; Pt O2 Delivery Device Ventilator
[2017-03-15 04:17] LABS: ABG Base Excess 5.1 MMOL/L (-2.5-2.5); ABG Oxygen Saturation 98.3 % (95-100); ABG PCO2 46.8 MM HG (35-48)
[2017-03-15 05:40] LABS: Basophils % 0.4 % (0.0-0.8); Eosinophils # 0.2 10*3/uL (0.0-0.87); Eosinophils % 2.2 % (0.00-10.9); Hematocrit 27.7 VOL% (42.0-52.0); Immature Granulocytes % 1.5 %; Lymphocytes # 0.2 10*3/uL (1.4-4.0); Lymphocytes % 2.9 % (21.2-54.2); Mean Corpuscular HGB Conc 36.1 GM/DL (32-36); Mean Corpuscular Hemoglobin 32 PG (27-34); Mean Corpuscular Volume 89.1 FL (87-102); Mean Platelet Volume 9.4 FL (9.6-12.0); Monocytes # 0.7 10*3/uL (0.11-0.8); Monocytes % 10.5 % (1.7-12.7); Neutrophils # 5.6 10*3/uL (1.4-7.4); Neutrophils % 82.5 % (38.7-73.9); Platelet Count 246 T/CUMM (130-400); Red Blood Count 3.11 MC/CUMM (3.8-5.5); Red Cell Distribution Width 15.7 % (9.3-17.3); White Blood Count 6.8 T/CUMM (4-12)
[2017-03-15 06:05] LABS: Albumin 1.4 G/DL (3.4-5.0); Bilirubin,Direct 7.94 MG/DL (0.0-0.20); Bilirubin,Indirect 2.2 MG/DL (0.0-1.0); Bilirubin,Total 10.1 MG/DL (0.2-1.0); Total Protein 4.5 G/DL (6.4-8.3)
[2017-03-15 06:06] LABS: Magnesium 2.2 MG/DL (1.8-2.4); Prealbumin 5.5 MG/DL (20-40)
[2017-03-15 06:09] LABS: Band Neutrophils 1 % (0-10); Eosinophils 2 % (0-10); Hypochromasia 1+; Lymphocytes 2 % (20-55); Microcytosis 1+; Ovalocytes Slight; Promyelocytes 1 %; Segmented Neutrophils 83 % (50-85); Target Cells Few; Total Cells Counted 100
[2017-03-15 06:10] LABS: Platelet Estimate Normal
[2017-03-15 06:14] LABS: Calcium 7.6 MG/DL (8.5-10.1); Potassium 4.3 MMOL/L (3.5-5.1)
[2017-03-15] MEDS: AMIKACIN 300 MG in SODIUM CHLORIDE 0.9% 100 ML IV SCH (06:14)
[2017-03-15] MEDS: PANTOPRAZOLE 40 MG VIAL IV SCH (09:30)
[2017-03-15] MEDS: MULTIVITAMIN LIQUID (CENTRUM) 60 ML BOTTLE PER TUBE SCH (09:33)
[2017-03-15] MEDS: ETHAMBUTOL 400 MG TABLET PO SCH (09:34)
[2017-03-15] MEDS: PYRAZINAMIDE 500 MG TABLET PO SCH (09:34)
[2017-03-15] MEDS: PYRIDOXINE 50 MG TABLET PO SCH (09:34)
[2017-03-15] MEDS: RIFAMPIN 300 MG CAPSULE PO SCH (09:35)
[2017-03-15] MEDS: NYSTATIN 500,000 UNIT/5 ML UDCUP SWISH/SWAL SCH ×4 (09:35→21:18)
[2017-03-15] MEDS: LEVOFLOXACIN INJ 500 MG in PREMIX 1 EACH IV SCH (09:37)
[2017-03-15] MEDS ORDERED: METOCLOPRAMIDE 10 MG/2 ML VIAL IV ONE (16:41)
[2017-03-16] MEDS: PROPOFOL 1,000 MG/100 ML BOTTLE IV SCH ×2 (00:19→19:47)
[2017-03-16] MEDS: ALBUTEROL/IPRATROPIUM 3 ML NEB RESP TX SCH ×4 (00:28→19:58)
[2017-03-16 03:22] LABS: ABG Base Excess 4.4 MMOL/L (-2.5-2.5); ABG HCO3 28.4 MMOL/L (20-26); ABG Oxygen Saturation 97.4 % (95-100); ABG PCO2 42.8 MM HG (35-48); ABG PO2 86.9 MM HG (80-95); Pt O2 Delivery Device Ventilator
[2017-03-16 04:31] LABS: Basophils % 0.4 % (0.0-0.8); Eosinophils # 0.1 10*3/uL (0.0-0.87); Eosinophils % 0.7 % (0.00-10.9); Hemoglobin 10.1 GM/DL (14.0-18.0); Immature Granulocytes % 1.3 %; Immature Granulocytes Absolute 0.11 #; Lymphocytes # 0.3 10*3/uL (1.4-4.0); Mean Corpuscular HGB Conc 36.1 GM/DL (32-36); Mean Corpuscular Hemoglobin 32 PG (27-34); Mean Corpuscular Volume 89.2 FL (87-102); Mean Platelet Volume 9.5 FL (9.6-12.0); Monocytes # 0.7 10*3/uL (0.11-0.8); Monocytes % 8.8 % (1.7-12.7); Neutrophils # 7.1 10*3/uL (1.4-7.4); Neutrophils % 85.8 % (38.7-73.9); Platelet Count 279 T/CUMM (130-400); Red Blood Count 3.14 MC/CUMM (3.8-5.5); Red Cell Distribution Width 15.9 % (9.3-17.3); White Blood Count 8.2 T/CUMM (4-12)
[2017-03-16] MEDS: AMIKACIN 300 MG in SODIUM CHLORIDE 0.9% 100 ML IV SCH (05:00)
[2017-03-16 05:05] LABS: Albumin 1.5 G/DL (3.4-5.0); Bilirubin,Direct 8.39 MG/DL (0.0-0.20); Bilirubin,Indirect 1.6 MG/DL (0.0-1.0); Calcium 7.7 MG/DL (8.5-10.1); Magnesium 2.1 MG/DL (1.8-2.4); Osmolality,Calculated 278.7 MOS/KG (273-304); Potassium 3.8 MMOL/L (3.5-5.1); Total Protein 4.7 G/DL (6.4-8.3)
[2017-03-16 05:18] LABS: Band Neutrophils 1 % (0-10); Lymphocytes 3 % (20-55); Total Cells Counted 100
[2017-03-16 05:19] LABS: Anisocytosis Slight; Eosinophils 1 % (0-10); Platelet Estimate Normal; Segmented Neutrophils 88 % (50-85)
[2017-03-16 05:20] LABS: Macrocytosis Slight
[2017-03-16] MEDS: MORPHINE 2 MG/1 ML SYRINGE IV PRN ×2 (05:23→13:30)
[2017-03-16] MEDS: DEXTROSE 50% 25 GM/50 ML VIAL IV PRN (05:27)
[2017-03-16] MEDS: ETHAMBUTOL 400 MG TABLET PO SCH (09:38)
[2017-03-16] MEDS: PYRAZINAMIDE 500 MG TABLET PO SCH (09:38)
[2017-03-16] MEDS: METOCLOPRAMIDE 10 MG/2 ML VIAL IV SCH ×3 (09:39→20:23)
[2017-03-16] MEDS: PYRIDOXINE 50 MG TABLET PO SCH (09:39)
[2017-03-16] MEDS: RIFAMPIN 300 MG CAPSULE PO SCH (09:39)
[2017-03-16] MEDS: PANTOPRAZOLE 40 MG VIAL IV SCH (09:41)
[2017-03-16] MEDS: NYSTATIN 500,000 UNIT/5 ML UDCUP SWISH/SWAL SCH ×4 (09:43→20:23)
[2017-03-16] MEDS: LEVOFLOXACIN INJ 500 MG in PREMIX 1 EACH IV SCH (09:43)
[2017-03-16] MEDS: MULTIVITAMIN LIQUID (CENTRUM) 60 ML BOTTLE PER TUBE SCH (15:59)
[2017-03-17] MEDS: ALBUTEROL/IPRATROPIUM 3 ML NEB RESP TX SCH ×4 (01:32→18:42)
[2017-03-17] MEDS: MORPHINE 2 MG/1 ML SYRINGE IV PRN (02:09)
[2017-03-17 03:18] LABS: ABG Base Excess 4.8 MMOL/L (-2.5-2.5); ABG HCO3 29.8 MMOL/L (20-26); ABG Oxygen Saturation 97.3 % (95-100); ABG PCO2 46.5 MM HG (35-48); ABG PH 7.425 (7.35-7.45); ABG PO2 103.9 MM HG (80-95); ABG TCO2 31.3 MMOL/L (23-27); Allen Test Positive; Pt O2 Delivery Device Ventilator
[2017-03-17] MEDS: AMIKACIN 300 MG in SODIUM CHLORIDE 0.9% 100 ML IV SCH (05:00)
[2017-03-17] MEDS: METOCLOPRAMIDE 10 MG/2 ML VIAL IV SCH ×4 (05:00→21:39)
[2017-03-17] MEDS: PROPOFOL 1,000 MG/100 ML BOTTLE IV SCH ×2 (05:05→20:03)
[2017-03-17 05:51] LABS: Basophils % 0.4 % (0.0-0.8); Eosinophils # 0.1 10*3/uL (0.0-0.87); Eosinophils % 0.6 % (0.00-10.9); Hematocrit 29.5 VOL% (42.0-52.0); Hemoglobin 10.5 GM/DL (14.0-18.0); Immature Granulocytes % 1.8 %; Immature Granulocytes Absolute 0.17 #; Lymphocytes # 0.3 10*3/uL (1.4-4.0); Lymphocytes % 2.8 % (21.2-54.2); Mean Corpuscular HGB Conc 35.6 GM/DL (32-36); Mean Corpuscular Hemoglobin 32 PG (27-34); Mean Corpuscular Volume 89.1 FL (87-102); Mean Platelet Volume 9.5 FL (9.6-12.0); Monocytes # 0.5 10*3/uL (0.11-0.8); Monocytes % 5.7 % (1.7-12.7); Neutrophils # 8.2 10*3/uL (1.4-7.4); Neutrophils % 88.7 % (38.7-73.9); Platelet Count 312 T/CUMM (130-400); Red Blood Count 3.31 MC/CUMM (3.8-5.5); Red Cell Distribution Width 16.5 % (9.3-17.3); White Blood Count 9.3 T/CUMM (4-12)
[2017-03-17 06:31] LABS: Albumin 1.5 G/DL (3.4-5.0); Bilirubin,Direct 8.95 MG/DL (0.0-0.20); Bilirubin,Indirect 2.6 MG/DL (0.0-1.0); Bilirubin,Total 11.5 MG/DL (0.2-1.0); Calcium 7.9 MG/DL (8.5-10.1); Magnesium 2.1 MG/DL (1.8-2.4); Osmolality,Calculated 280.5 MOS/KG (273-304); Potassium 2.9 MMOL/L (3.5-5.1); Total Protein 4.8 G/DL (6.4-8.3)
[2017-03-17 06:42] LABS: Band Neutrophils 1 % (0-10); Eosinophils 1 % (0-10); Giant Platelets Few; Hypochromasia 1+; Lymphocytes 2 % (20-55); Microcytosis Slight; Ovalocytes Slight; Platelet Estimate Adequate; Segmented Neutrophils 88 % (50-85); Total Cells Counted 100
[2017-03-17] MEDS: DEXTROSE 50% 25 GM/50 ML VIAL IV PRN (06:47)
[2017-03-17] MEDS: NYSTATIN 500,000 UNIT/5 ML UDCUP SWISH/SWAL SCH ×4 (08:24→21:39)
[2017-03-17] MEDS: ETHAMBUTOL 400 MG TABLET PO SCH (08:24)
[2017-03-17] MEDS: LEVOFLOXACIN INJ 500 MG in PREMIX 1 EACH IV SCH (08:25)
[2017-03-17] MEDS: PYRIDOXINE 50 MG TABLET PO SCH (08:25)
[2017-03-17] MEDS: RIFAMPIN 300 MG CAPSULE PO SCH (08:25)
[2017-03-17] MEDS: PYRAZINAMIDE 500 MG TABLET PO SCH (08:25)
[2017-03-17] MEDS: MULTIVITAMIN LIQUID (CENTRUM) 60 ML BOTTLE PER TUBE SCH (08:26)
[2017-03-17] MEDS: PANTOPRAZOLE 40 MG VIAL IV SCH (08:26)
[2017-03-17] MEDS ORDERED: DEXTROSE 10% 1,000 ML IV PRN (11:27)
[2017-03-17 12:43] LABS: HIV Antigen/Antibody Result Nonreactive (Nonreactive)
[2017-03-17] MEDS: INSULIN REGULAR 100 UNIT/ML SUBCUT SCH ×2 (15:35→18:35)
[2017-03-17] MEDS: DEXT 5% NACL 0.45% KCL 20 MEQ 20 MEQ/1,000 ML BAG IV SCH (15:35)
[2017-03-17] MEDS: DEXTROSE 70% IV SCH (18:34)
[2017-03-17] MEDS: AMINO ACIDS IV SCH (18:34)
[2017-03-17] MEDS: ELECTROLYTE IV SCH (18:34)
[2017-03-18] MEDS: INSULIN REGULAR 100 UNIT/ML SUBCUT SCH ×4 (00:36→17:37)
[2017-03-18] MEDS: ALBUTEROL/IPRATROPIUM 3 ML NEB RESP TX SCH ×4 (00:40→19:41)
[2017-03-18] MEDS: DEXT 5% NACL 0.45% KCL 20 MEQ 20 MEQ/1,000 ML BAG IV SCH ×3 (03:55→21:03)
[2017-03-18] MEDS: METOCLOPRAMIDE 10 MG/2 ML VIAL IV SCH ×4 (03:56→21:53)
[2017-03-18 04:14] LABS: ABG Base Excess 4.4 MMOL/L (-2.5-2.5); ABG Oxygen Saturation 96.5 % (95-100); ABG PCO2 43.7 MM HG (35-48); ABG PO2 86.5 MM HG (80-95); ABG TCO2 30.4 MMOL/L (23-27); Allen Test Positive; Pt O2 Delivery Device Ventilator
[2017-03-18] MEDS: AMIKACIN 300 MG in SODIUM CHLORIDE 0.9% 100 ML IV SCH (05:23)
[2017-03-18 06:05] LABS: Basophils % 0.4 % (0.0-0.8); Eosinophils # 0.1 10*3/uL (0.0-0.87); Eosinophils % 1.3 % (0.00-10.9); Hematocrit 26.5 VOL% (42.0-52.0); Hemoglobin 9.4 GM/DL (14.0-18.0); Immature Granulocytes % 3.4 %; Immature Granulocytes Absolute 0.26 #; Lymphocytes # 0.3 10*3/uL (1.4-4.0); Lymphocytes % 3.4 % (21.2-54.2); Mean Corpuscular HGB Conc 35.5 GM/DL (32-36); Mean Corpuscular Hemoglobin 32 PG (27-34); Mean Corpuscular Volume 90.4 FL (87-102); Mean Platelet Volume 9.7 FL (9.6-12.0); Monocytes # 0.5 10*3/uL (0.11-0.8); Monocytes % 6.9 % (1.7-12.7); Neutrophils # 6.4 10*3/uL (1.4-7.4); Neutrophils % 84.6 % (38.7-73.9); Platelet Count 325 T/CUMM (130-400); Red Blood Count 2.93 MC/CUMM (3.8-5.5); Red Cell Distribution Width 16.5 % (9.3-17.3); White Blood Count 7.6 T/CUMM (4-12)
[2017-03-18 06:35] LABS: Band Neutrophils 3 % (0-10); Eosinophils 1 % (0-10); Giant Platelets Few; Hypochromasia 1+; Lymphocytes 1 % (20-55); Microcytosis Slight; Ovalocytes Slight; Platelet Estimate Adequate; Segmented Neutrophils 88 % (50-85); Total Cells Counted 100
[2017-03-18 06:45] LABS: Albumin 1.5 G/DL (3.4-5.0); Bilirubin,Direct 8.74 MG/DL (0.0-0.20); Bilirubin,Indirect 2.5 MG/DL (0.0-1.0); Bilirubin,Total 11.2 MG/DL (0.2-1.0); Total Protein 4.7 G/DL (6.4-8.3)
[2017-03-18 06:48] LABS: Calcium 7.5 MG/DL (8.5-10.1); Osmolality,Calculated 281.8 MOS/KG (273-304)
[2017-03-18] MEDS: LEVOFLOXACIN INJ 500 MG in PREMIX 1 EACH IV SCH (08:51)
[2017-03-18] MEDS: PANTOPRAZOLE 40 MG VIAL IV SCH (08:52)
[2017-03-18] MEDS: NYSTATIN 500,000 UNIT/5 ML UDCUP SWISH/SWAL SCH ×4 (08:53→21:53)
[2017-03-18] MEDS: PYRAZINAMIDE 500 MG TABLET PO SCH (08:53)
[2017-03-18] MEDS: PYRIDOXINE 50 MG TABLET PO SCH (08:53)
[2017-03-18] MEDS: RIFAMPIN 300 MG CAPSULE PO SCH (08:53)
[2017-03-18] MEDS: ETHAMBUTOL 400 MG TABLET PO SCH (09:14)
[2017-03-18] MEDS: MULTIVITAMIN LIQUID (CENTRUM) 60 ML BOTTLE PER TUBE SCH (09:14)
[2017-03-18] MEDS: ELECTROLYTE IV SCH (14:24)
[2017-03-18] MEDS: DEXTROSE 70% IV SCH (14:24)
[2017-03-18] MEDS: AMINO ACIDS IV SCH (14:24)
[2017-03-18] MEDS: PROPOFOL 1,000 MG/100 ML BOTTLE IV SCH (16:50)
[2017-03-18] MEDS ORDERED: POTASSIUM CHLORIDE INJ 40 MEQ in SODIUM CHLORIDE 0.9% 500 ML IV ONE (18:00)
[2017-03-19] MEDS: INSULIN REGULAR 100 UNIT/ML SUBCUT SCH ×4 (00:16→18:24)
[2017-03-19] MEDS: ALBUTEROL/IPRATROPIUM 3 ML NEB RESP TX SCH ×4 (01:22→19:16)
[2017-03-19] MEDS: METOCLOPRAMIDE 10 MG/2 ML VIAL IV SCH ×4 (02:57→20:20)
[2017-03-19] MEDS: PROPOFOL 1,000 MG/100 ML BOTTLE IV SCH ×3 (03:00→20:35)
[2017-03-19 03:57] LABS: ABG Base Excess 2.6 MMOL/L (-2.5-2.5); ABG HCO3 26.8 MMOL/L (20-26); ABG Oxygen Saturation 97.6 % (95-100); ABG PCO2 42.8 MM HG (35-48); ABG PH 7.416 (7.35-7.45); ABG PO2 91.8 MM HG (80-95); ABG TCO2 25.1 MMOL/L (23-27); Allen Test Positive; Pt O2 Delivery Device Ventilator
[2017-03-19 04:58] LABS: Basophils % 0.3 % (0.0-0.8); Eosinophils # 0.2 10*3/uL (0.0-0.87); Eosinophils % 1.5 % (0.00-10.9); Hematocrit 26.1 VOL% (42.0-52.0); Hemoglobin 9.5 GM/DL (14.0-18.0); Immature Granulocytes % 4.3 %; Immature Granulocytes Absolute 0.44 #; Lymphocytes # 0.3 10*3/uL (1.4-4.0); Lymphocytes % 2.5 % (21.2-54.2); Mean Corpuscular HGB Conc 36.4 GM/DL (32-36); Mean Corpuscular Hemoglobin 32 PG (27-34); Mean Corpuscular Volume 87.6 FL (87-102); Monocytes # 0.7 10*3/uL (0.11-0.8); Monocytes % 6.6 % (1.7-12.7); Neutrophils # 8.7 10*3/uL (1.4-7.4); Neutrophils % 84.8 % (38.7-73.9); Platelet Count 316 T/CUMM (130-400); Red Blood Count 2.98 MC/CUMM (3.8-5.5); Red Cell Distribution Width 16.4 % (9.3-17.3); White Blood Count 10.2 T/CUMM (4-12)
[2017-03-19] MEDS: AMIKACIN 350 MG in SODIUM CHLORIDE 0.9% 100 ML IV SCH (05:14)
[2017-03-19 05:37] LABS: Calcium 7.4 MG/DL (8.5-10.1); Magnesium 1.7 MG/DL (1.8-2.4); Osmolality,Calculated 277.1 MOS/KG (273-304); Potassium 3.3 MMOL/L (3.5-5.1)
[2017-03-19 05:50] LABS: Band Neutrophils 3 % (0-10); Eosinophils 4 % (0-10); Giant Platelets Few; Hypochromasia 1+; Lymphocytes 4 % (20-55); Microcytosis Slight; Ovalocytes Slight; Platelet Estimate Adequate; Segmented Neutrophils 82 % (50-85); Total Cells Counted 100
[2017-03-19] MEDS ORDERED: POTASSIUM CHLORIDE RIDER 20 MEQ in PREMIX 1 EACH IV PRN (06:00)
[2017-03-19 06:09] LABS: Albumin 1.3 G/DL (3.4-5.0); Bilirubin,Direct 8.16 MG/DL (0.0-0.20); Bilirubin,Indirect 1.6 MG/DL (0.0-1.0); Bilirubin,Total 9.8 MG/DL (0.2-1.0); Total Protein 4.6 G/DL (6.4-8.3)
[2017-03-19] MEDS: POTASSIUM CHLORIDE RIDER 20 MEQ in PREMIX 1 EACH IV PRN ×2 (06:10→06:49)
[2017-03-19] MEDS ORDERED: MAGNESIUM SULF RIDER 4 GM in PREMIX 1 EACH IV PRN (06:32)
[2017-03-19] MEDS: MAGNESIUM SULF RIDER 2 GM in PREMIX 1 EACH IV PRN (07:12)
[2017-03-19] MEDS: DEXT 5% NACL 0.45% KCL 20 MEQ 20 MEQ/1,000 ML BAG IV SCH (07:42)
[2017-03-19] MEDS: PANTOPRAZOLE 40 MG VIAL IV SCH (09:11)
[2017-03-19] MEDS: NYSTATIN 500,000 UNIT/5 ML UDCUP SWISH/SWAL SCH ×4 (09:11→20:20)
[2017-03-19] MEDS: PYRAZINAMIDE 500 MG TABLET PO SCH (09:12)
[2017-03-19] MEDS: RIFAMPIN 300 MG CAPSULE PO SCH (09:13)
[2017-03-19] MEDS: PYRIDOXINE 50 MG TABLET PO SCH (09:14)
[2017-03-19] MEDS: ETHAMBUTOL 400 MG TABLET PO SCH (09:14)
[2017-03-19] MEDS: LEVOFLOXACIN INJ 500 MG in PREMIX 1 EACH IV SCH (09:21)
[2017-03-19] MEDS ORDERED: POTASSIUM PHOSPHATE 15 MMOL in SODIUM CHLORIDE 0.9% 100 ML IV ONE (09:30)
[2017-03-19] MEDS: MULTIVITAMIN LIQUID (CENTRUM) 60 ML BOTTLE PER TUBE SCH (09:34)
[2017-03-19] MEDS: ELECTROLYTE IV SCH ×2 (11:29→18:25)
[2017-03-19] MEDS: AMINO ACIDS IV SCH (11:29)
[2017-03-19] MEDS: DEXTROSE 70% IV SCH (11:29)
[2017-03-19] MEDS: MORPHINE 2 MG/1 ML SYRINGE IV PRN ×2 (12:36→18:37)
[2017-03-19] MEDS: [UNRECOGNIZED DRUG - OTHER] IV SCH (18:25)
[2017-03-19] MEDS: POTASSIUM PHOSPHATE IV SCH (18:25)
[2017-03-19] MEDS: AMINO ACIDS 10% IV SCH (18:25)
[2017-03-20] MEDS: ALBUTEROL/IPRATROPIUM 3 ML NEB RESP TX SCH ×4 (00:35→19:49)
[2017-03-20 03:45] LABS: Allen Test Positive; Pt O2 Delivery Device Ventilator
[2017-03-20 03:47] LABS: ABG HCO3 27.2 MMOL/L (20-26); ABG Oxygen Saturation 98.3 % (95-100); ABG PCO2 39.7 MM HG (35-48); ABG PH 7.453 (7.35-7.45); ABG PO2 119.1 MM HG (80-95); ABG TCO2 28.4 MMOL/L (23-27)
[2017-03-20] MEDS: METOCLOPRAMIDE 10 MG/2 ML VIAL IV SCH ×4 (04:14→21:20)
[2017-03-20] MEDS: AMIKACIN 350 MG in SODIUM CHLORIDE 0.9% 100 ML IV SCH (04:14)
[2017-03-20 05:00] LABS: Basophils % 0.4 % (0.0-0.8); Eosinophils # 0.2 10*3/uL (0.0-0.87); Eosinophils % 1.7 % (0.00-10.9); Hematocrit 24.6 VOL% (42.0-52.0); Hemoglobin 8.9 GM/DL (14.0-18.0); Immature Granulocytes % 7.5 %; Immature Granulocytes Absolute 0.75 #; Lymphocytes # 0.3 10*3/uL (1.4-4.0); Lymphocytes % 2.9 % (21.2-54.2); Mean Corpuscular HGB Conc 36.2 GM/DL (32-36); Mean Corpuscular Hemoglobin 32 PG (27-34); Mean Corpuscular Volume 88.8 FL (87-102); Mean Platelet Volume 10.3 FL (9.6-12.0); Monocytes # 0.7 10*3/uL (0.11-0.8); Monocytes % 7.4 % (1.7-12.7); Neutrophils % 80.1 % (38.7-73.9); Platelet Count 319 T/CUMM (130-400); Red Blood Count 2.77 MC/CUMM (3.8-5.5)
[2017-03-20] MEDS: INSULIN REGULAR 100 UNIT/ML SUBCUT SCH ×4 (05:23→18:57)
[2017-03-20 05:25] LABS: Band Neutrophils 9 % (0-10); Eosinophils 1 % (0-10); Lymphocytes 2 % (20-55); Myelocytes 1 %; Segmented Neutrophils 78 % (50-85); Total Cells Counted 100
[2017-03-20 05:26] LABS: Giant Platelets Few; Hypochromasia 1+; Microcytosis Slight; Ovalocytes Slight; Platelet Estimate Adequate
[2017-03-20 05:32] LABS: Calcium 7.2 MG/DL (8.5-10.1); Osmolality,Calculated 277.1 MOS/KG (273-304); Potassium 4.2 MMOL/L (3.5-5.1)
[2017-03-20] MEDS: PROPOFOL 1,000 MG/100 ML BOTTLE IV SCH ×2 (07:32→21:27)
[2017-03-20] MEDS: ETHAMBUTOL 400 MG TABLET PO SCH (08:49)
[2017-03-20] MEDS: RIFAMPIN 300 MG CAPSULE PO SCH (08:50)
[2017-03-20] MEDS: PYRIDOXINE 50 MG TABLET PO SCH (08:50)
[2017-03-20] MEDS: PYRAZINAMIDE 500 MG TABLET PO SCH (08:50)
[2017-03-20] MEDS: NYSTATIN 500,000 UNIT/5 ML UDCUP SWISH/SWAL SCH ×4 (08:50→21:27)
[2017-03-20] MEDS: PANTOPRAZOLE 40 MG VIAL IV SCH (08:58)
[2017-03-20] MEDS: LEVOFLOXACIN INJ 500 MG in PREMIX 1 EACH IV SCH (09:07)
[2017-03-20] MEDS: MULTIVITAMIN LIQUID (CENTRUM) 60 ML BOTTLE PER TUBE SCH (09:51)
[2017-03-20] MEDS: [UNRECOGNIZED DRUG - OTHER] IV SCH (14:18)
[2017-03-20] MEDS: ELECTROLYTE IV SCH (14:18)
[2017-03-20] MEDS: AMINO ACIDS 10% IV SCH (14:18)
[2017-03-20] MEDS: POTASSIUM PHOSPHATE IV SCH (14:18)
[2017-03-21] MEDS: INSULIN REGULAR 100 UNIT/ML SUBCUT SCH ×5 (00:26→23:22)
[2017-03-21] MEDS: ALBUTEROL/IPRATROPIUM 3 ML NEB RESP TX SCH ×4 (02:06→19:13)
[2017-03-21] MEDS: METOCLOPRAMIDE 10 MG/2 ML VIAL IV SCH ×4 (03:57→21:19)
[2017-03-21] MEDS: AMIKACIN 350 MG in SODIUM CHLORIDE 0.9% 100 ML IV SCH (04:00)
[2017-03-21 04:49] LABS: Allen Test Positive; Pt O2 Delivery Device Ventilator
[2017-03-21 04:51] LABS: ABG Base Excess 1.4 MMOL/L (-2.5-2.5); ABG HCO3 25.7 MMOL/L (20-26); ABG PCO2 41.3 MM HG (35-48); ABG PH 7.409 (7.35-7.45); ABG TCO2 24.4 MMOL/L (23-27)
[2017-03-21 05:05] LABS: Albumin 1.3 G/DL (3.4-5.0); Bilirubin,Total 9.1 MG/DL (0.2-1.0); Calcium 7.3 MG/DL (8.5-10.1); Osmolality,Calculated 276.2 MOS/KG (273-304); Potassium 3.8 MMOL/L (3.5-5.1); Total Protein 4.6 G/DL (6.4-8.3)
[2017-03-21] MEDS: PROPOFOL 1,000 MG/100 ML BOTTLE IV SCH ×2 (06:50→23:13)
[2017-03-21] MEDS: LEVOFLOXACIN INJ 500 MG in PREMIX 1 EACH IV SCH (09:28)
[2017-03-21] MEDS: NYSTATIN 500,000 UNIT/5 ML UDCUP SWISH/SWAL SCH ×4 (09:30→21:19)
[2017-03-21] MEDS: RIFAMPIN 300 MG CAPSULE PO SCH (09:30)
[2017-03-21] MEDS: ETHAMBUTOL 400 MG TABLET PO SCH (09:30)
[2017-03-21] MEDS: PYRAZINAMIDE 500 MG TABLET PO SCH (09:30)
[2017-03-21] MEDS: PYRIDOXINE 50 MG TABLET PO SCH (09:30)
[2017-03-21] MEDS: PANTOPRAZOLE 40 MG VIAL IV SCH (09:31)
[2017-03-21] MEDS: ELECTROLYTE IV SCH (09:55)
[2017-03-21] MEDS: POTASSIUM PHOSPHATE IV SCH (09:55)
[2017-03-21] MEDS: AMINO ACIDS 10% IV SCH (09:55)
[2017-03-21] MEDS: [UNRECOGNIZED DRUG - OTHER] IV SCH (09:55)
[2017-03-21] MEDS: MULTIVITAMIN LIQUID (CENTRUM) 60 ML BOTTLE PER TUBE SCH ×2 (10:01→10:31)
[2017-03-21] MEDS: MORPHINE 2 MG/1 ML SYRINGE IV PRN (21:20)
[2017-03-22] MEDS: METOCLOPRAMIDE 10 MG/2 ML VIAL IV SCH ×4 (02:07→21:59)
[2017-03-22] MEDS: ALBUTEROL/IPRATROPIUM 3 ML NEB RESP TX SCH ×4 (03:18→19:05)
[2017-03-22 04:33] LABS: Allen Test Positive; Pt O2 Delivery Device Ventilator
[2017-03-22 04:37] LABS: ABG Base Excess 1.8 MMOL/L (-2.5-2.5); ABG Oxygen Saturation 98.9 % (95-100); ABG PCO2 43.5 MM HG (35-48); ABG PH 7.397 (7.35-7.45)
[2017-03-22 05:48] LABS: Basophils % 0.4 % (0.0-0.8); Eosinophils # 0.1 10*3/uL (0.0-0.87); Eosinophils % 0.7 % (0.00-10.9); Hematocrit 22.4 VOL% (42.0-52.0); Hemoglobin 8.2 GM/DL (14.0-18.0); Immature Granulocytes % 10.3 %; Immature Granulocytes Absolute 0.97 #; Lymphocytes # 0.4 10*3/uL (1.4-4.0); Lymphocytes % 4.2 % (21.2-54.2); Mean Corpuscular HGB Conc 36.6 GM/DL (32-36); Mean Corpuscular Hemoglobin 32 PG (27-34); Mean Corpuscular Volume 88.2 FL (87-102); Mean Platelet Volume 9.8 FL (9.6-12.0); Monocytes # 0.9 10*3/uL (0.11-0.8); Monocytes % 9.2 % (1.7-12.7); Neutrophils # 7.1 10*3/uL (1.4-7.4); Neutrophils % 75.2 % (38.7-73.9); Platelet Count 315 T/CUMM (130-400); Red Blood Count 2.54 MC/CUMM (3.8-5.5); Red Cell Distribution Width 17.3 % (9.3-17.3); White Blood Count 9.5 T/CUMM (4-12)
[2017-03-22] MEDS: INSULIN REGULAR 100 UNIT/ML SUBCUT SCH ×3 (06:03→18:24)
[2017-03-22 06:21] LABS: Atypical Lymphocytes Few; Band Neutrophils 7 % (0-10); Eosinophils 1 % (0-10); Giant Platelets Few; Hypochromasia 1+; Lymphocytes 2 % (20-55); Microcytosis Slight; Myelocytes 1 %; Platelet Estimate Adequate; Segmented Neutrophils 83 % (50-85); Total Cells Counted 100
[2017-03-22 06:26] LABS: Albumin 1.3 G/DL (3.4-5.0); Bilirubin,Direct 7.18 MG/DL (0.0-0.20); Bilirubin,Indirect 1.1 MG/DL (0.0-1.0); Bilirubin,Total 8.3 MG/DL (0.2-1.0); Calcium 7.5 MG/DL (8.5-10.1); Osmolality,Calculated 277.2 MOS/KG (273-304); Potassium 3.3 MMOL/L (3.5-5.1); Total Protein 4.5 G/DL (6.4-8.3)
[2017-03-22 06:27] LABS: Magnesium 1.7 MG/DL (1.8-2.4); Prealbumin 8.7 MG/DL (20-40)
[2017-03-22] MEDS: AMIKACIN 350 MG in SODIUM CHLORIDE 0.9% 100 ML IV SCH (06:48)
[2017-03-22] MEDS: AMINO ACIDS 10% IV SCH (06:49)
[2017-03-22] MEDS: [UNRECOGNIZED DRUG - OTHER] IV SCH (06:49)
[2017-03-22] MEDS: POTASSIUM PHOSPHATE IV SCH (06:49)
[2017-03-22] MEDS: ELECTROLYTE IV SCH (06:49)
[2017-03-22] MEDS ORDERED: SODIUM CHLORIDE 0.9% 1,000 ML IV PRN (07:03)
[2017-03-22] MEDS: MAGNESIUM SULF RIDER 2 GM in PREMIX 1 EACH IV PRN (08:47)
[2017-03-22] MEDS: POTASSIUM CHLORIDE RIDER 20 MEQ in PREMIX 1 EACH IV PRN ×4 (08:48→22:10)
[2017-03-22] MEDS: LEVOFLOXACIN INJ 500 MG in PREMIX 1 EACH IV SCH (09:13)
[2017-03-22] MEDS: MULTIVITAMIN LIQUID (CENTRUM) 60 ML BOTTLE PER TUBE SCH (09:51)
[2017-03-22] MEDS: ETHAMBUTOL 400 MG TABLET PO SCH (09:52)
[2017-03-22] MEDS: RIFAMPIN 300 MG CAPSULE PO SCH (09:52)
[2017-03-22] MEDS: NYSTATIN 500,000 UNIT/5 ML UDCUP SWISH/SWAL SCH ×4 (09:52→21:59)
[2017-03-22] MEDS: PYRIDOXINE 50 MG TABLET PO SCH (09:53)
[2017-03-22] MEDS: PYRAZINAMIDE 500 MG TABLET PO SCH (09:53)
[2017-03-22] MEDS: PANTOPRAZOLE 40 MG VIAL IV SCH (09:53)
[2017-03-22] MEDS: PROPOFOL 1,000 MG/100 ML BOTTLE IV SCH (16:14)
[2017-03-23] MEDS: INSULIN REGULAR 100 UNIT/ML SUBCUT SCH ×4 (00:10→18:22)
[2017-03-23] MEDS: ALBUTEROL/IPRATROPIUM 3 ML NEB RESP TX SCH ×4 (00:52→20:03)
[2017-03-23] MEDS: ELECTROLYTE IV SCH ×2 (02:02→22:10)
[2017-03-23] MEDS: [UNRECOGNIZED DRUG - OTHER] IV SCH ×2 (02:02→22:10)
[2017-03-23] MEDS: POTASSIUM PHOSPHATE IV SCH ×2 (02:02→22:10)
[2017-03-23] MEDS: AMINO ACIDS 10% IV SCH ×2 (02:02→22:10)
[2017-03-23] MEDS: METOCLOPRAMIDE 10 MG/2 ML VIAL IV SCH ×4 (02:03→20:15)
[2017-03-23] MEDS: PROPOFOL 1,000 MG/100 ML BOTTLE IV SCH ×3 (03:19→22:10)
[2017-03-23 04:27] LABS: ABG Base Excess -0.2 MMOL/L (-2.5-2.5); ABG HCO3 24.4 MMOL/L (20-26); ABG Oxygen Saturation 95.7 % (95-100); ABG PH 7.404 (7.35-7.45); ABG PO2 76.8 MM HG (80-95); ABG TCO2 25.7 MMOL/L (23-27); Allen Test Positive; Pt O2 Delivery Device Ventilator
[2017-03-23 05:40] LABS: Basophils % 0.3 % (0.0-0.8); Eosinophils # 0.1 10*3/uL (0.0-0.87); Eosinophils % 0.8 % (0.00-10.9); Hematocrit 31.7 VOL% (42.0-52.0); Hemoglobin 11.5 GM/DL (14.0-18.0); Immature Granulocytes % 11.9 %; Immature Granulocytes Absolute 1.26 #; Lymphocytes # 0.4 10*3/uL (1.4-4.0); Lymphocytes % 3.5 % (21.2-54.2); Mean Corpuscular HGB Conc 36.3 GM/DL (32-36); Mean Corpuscular Hemoglobin 31 PG (27-34); Mean Corpuscular Volume 85.7 FL (87-102); Mean Platelet Volume 10.1 FL (9.6-12.0); Monocytes # 1.4 10*3/uL (0.11-0.8); Monocytes % 13.5 % (1.7-12.7); Neutrophils # 7.4 10*3/uL (1.4-7.4); Platelet Count 282 T/CUMM (130-400); Red Cell Distribution Width 16.6 % (9.3-17.3); White Blood Count 10.6 T/CUMM (4-12)
[2017-03-23 06:01] LABS: Band Neutrophils 4 % (0-10); Eosinophils 1 % (0-10); Giant Platelets Few; Hypochromasia 1+; Lymphocytes 6 % (20-55); Microcytosis Slight; Ovalocytes Slight; Platelet Estimate Adequate; Segmented Neutrophils 77 % (50-85); Total Cells Counted 100
[2017-03-23 06:14] LABS: Albumin 1.4 G/DL (3.4-5.0); Bilirubin,Direct 7.41 MG/DL (0.0-0.20); Bilirubin,Indirect 1.3 MG/DL (0.0-1.0); Bilirubin,Total 8.7 MG/DL (0.2-1.0); Calcium 7.5 MG/DL (8.5-10.1); Osmolality,Calculated 273.5 MOS/KG (273-304); Total Protein 4.9 G/DL (6.4-8.3)
[2017-03-23] MEDS: PANTOPRAZOLE 40 MG VIAL IV SCH (09:27)
[2017-03-23] MEDS: NYSTATIN 500,000 UNIT/5 ML UDCUP SWISH/SWAL SCH ×4 (09:27→20:15)
[2017-03-23] MEDS: ETHAMBUTOL 400 MG TABLET PO SCH (09:27)
[2017-03-23] MEDS: RIFAMPIN 300 MG CAPSULE PO SCH (09:28)
[2017-03-23] MEDS: PYRAZINAMIDE 500 MG TABLET PO SCH (09:28)
[2017-03-23] MEDS: MULTIVITAMIN LIQUID (CENTRUM) 60 ML BOTTLE PER TUBE SCH (09:28)
[2017-03-23 11:44] LABS: Albumin 1.5 G/DL (3.4-5.0); Bilirubin,Total 8.6 MG/DL (0.2-1.0); Calcium 7.9 MG/DL (8.5-10.1); Osmolality,Calculated 276.4 MOS/KG (273-304); Potassium 3.7 MMOL/L (3.5-5.1); Total Protein 5.2 G/DL (6.4-8.3)
[2017-03-23] MEDS: MORPHINE 2 MG/1 ML SYRINGE IV PRN (22:11)
[2017-03-24] MEDS: INSULIN REGULAR 100 UNIT/ML SUBCUT SCH ×4 (00:15→18:45)
[2017-03-24] MEDS: ALBUTEROL/IPRATROPIUM 3 ML NEB RESP TX SCH ×4 (01:05→19:20)
[2017-03-24] MEDS: METOCLOPRAMIDE 10 MG/2 ML VIAL IV SCH ×4 (02:25→20:30)
[2017-03-24] MEDS: MORPHINE 2 MG/1 ML SYRINGE IV PRN ×2 (04:50→17:23)
[2017-03-24 05:19] LABS: ABG Base Excess -0.2 MMOL/L (-2.5-2.5); ABG HCO3 25.2 MMOL/L (20-26); ABG Oxygen Saturation 97.7 % (95-100); ABG PH 7.375 (7.35-7.45); ABG PO2 104.8 MM HG (80-95); ABG TCO2 26.5 MMOL/L (23-27); Allen Test Positive; Pt O2 Delivery Device Ventilator
[2017-03-24 05:49] LABS: Basophils # 0.1 10*3/uL (0.0-0.2); Basophils % 0.9 % (0.0-0.8); Eosinophils # 0.1 10*3/uL (0.0-0.87); Eosinophils % 0.9 % (0.00-10.9); Hematocrit 31.2 VOL% (42.0-52.0); Hemoglobin 11.4 GM/DL (14.0-18.0); Immature Granulocytes % 12.8 %; Immature Granulocytes Absolute 1.12 #; Lymphocytes # 0.4 10*3/uL (1.4-4.0); Lymphocytes % 4.5 % (21.2-54.2); Mean Corpuscular HGB Conc 36.5 GM/DL (32-36); Mean Corpuscular Hemoglobin 32 PG (27-34); Mean Corpuscular Volume 86.7 FL (87-102); Mean Platelet Volume 9.8 FL (9.6-12.0); Monocytes # 1.5 10*3/uL (0.11-0.8); Monocytes % 16.8 % (1.7-12.7); Neutrophils # 5.6 10*3/uL (1.4-7.4); Neutrophils % 64.1 % (38.7-73.9); Platelet Count 274 T/CUMM (130-400); Red Cell Distribution Width 16.7 % (9.3-17.3); White Blood Count 8.8 T/CUMM (4-12)
[2017-03-24 06:38] LABS: Eosinophils 2 % (0-10); Lymphocytes 11 % (20-55); Platelet Estimate Normal; Segmented Neutrophils 73 % (50-85); Total Cells Counted 100
[2017-03-24] MEDS: PANTOPRAZOLE 40 MG VIAL IV SCH (09:15)
[2017-03-24] MEDS: MULTIVITAMIN LIQUID (CENTRUM) 60 ML BOTTLE PER TUBE SCH (09:16)
[2017-03-24] MEDS: ETHAMBUTOL 400 MG TABLET PO SCH (09:16)
[2017-03-24] MEDS: NYSTATIN 500,000 UNIT/5 ML UDCUP SWISH/SWAL SCH ×4 (09:16→20:35)
[2017-03-24] MEDS: PYRAZINAMIDE 500 MG TABLET PO SCH (09:16)
[2017-03-24] MEDS: RIFAMPIN 300 MG CAPSULE PO SCH (09:16)
[2017-03-24] MEDS: PROPOFOL 1,000 MG/100 ML BOTTLE IV SCH ×2 (17:00→20:35)
[2017-03-24] MEDS: ELECTROLYTE IV SCH (21:10)
[2017-03-24] MEDS: POTASSIUM PHOSPHATE IV SCH (21:10)
[2017-03-24] MEDS: [UNRECOGNIZED DRUG - OTHER] IV SCH (21:10)
[2017-03-24] MEDS: AMINO ACIDS 10% IV SCH (21:10)
[2017-03-25] MEDS: ALBUTEROL/IPRATROPIUM 3 ML NEB RESP TX SCH ×4 (00:18→20:55)
[2017-03-25] MEDS: MORPHINE 2 MG/1 ML SYRINGE IV PRN (00:55)
[2017-03-25] MEDS: INSULIN REGULAR 100 UNIT/ML SUBCUT SCH ×4 (02:05→18:32)
[2017-03-25 02:48] LABS: Pt O2 Delivery Device Ventilator
[2017-03-25 02:55] LABS: ABG HCO3 24.4 MMOL/L (20-26); ABG PCO2 40.2 MM HG (35-48); ABG PH 7.397 (7.35-7.45); ABG TCO2 21.9 MMOL/L (23-27)
[2017-03-25] MEDS: METOCLOPRAMIDE 10 MG/2 ML VIAL IV SCH ×4 (03:45→21:48)
[2017-03-25] MEDS: NYSTATIN 500,000 UNIT/5 ML UDCUP SWISH/SWAL SCH ×4 (08:37→21:48)
[2017-03-25] MEDS: ETHAMBUTOL 400 MG TABLET PO SCH (08:37)
[2017-03-25] MEDS: PANTOPRAZOLE 40 MG VIAL IV SCH (08:38)
[2017-03-25] MEDS: PYRAZINAMIDE 500 MG TABLET PO SCH (08:38)
[2017-03-25] MEDS: RIFAMPIN 300 MG CAPSULE PO SCH (08:38)
[2017-03-25] MEDS: PROPOFOL 1,000 MG/100 ML BOTTLE IV SCH (09:20)
[2017-03-25 10:06] LABS: INR 1.1; PT Patient Result 11.3 SECS; Partial Thromboplastin Time 34.5 SECS (0-40)
[2017-03-25] MEDS: MULTIVITAMIN LIQUID (CENTRUM) 60 ML BOTTLE PER TUBE SCH (14:38)
[2017-03-25] MEDS: [UNRECOGNIZED DRUG - OTHER] IV SCH (16:53)
[2017-03-25] MEDS: ELECTROLYTE IV SCH (16:53)
[2017-03-25] MEDS: POTASSIUM PHOSPHATE IV SCH (16:53)
[2017-03-25] MEDS: AMINO ACIDS 10% IV SCH (16:53)
[2017-03-26] MEDS: INSULIN REGULAR 100 UNIT/ML SUBCUT SCH ×4 (00:12→18:18)
[2017-03-26] MEDS: ALBUTEROL/IPRATROPIUM 3 ML NEB RESP TX SCH ×4 (00:44→19:21)
[2017-03-26] MEDS: METOCLOPRAMIDE 10 MG/2 ML VIAL IV SCH ×4 (02:42→21:58)
[2017-03-26] MEDS: PROPOFOL 1,000 MG/100 ML BOTTLE IV SCH ×3 (02:57→21:11)
[2017-03-26 03:38] LABS: ABG Base Excess -0.2 MMOL/L (-2.5-2.5); ABG HCO3 24.2 MMOL/L (20-26); ABG Oxygen Saturation 98.2 % (95-100); ABG PCO2 41.2 MM HG (35-48); ABG PH 7.388 (7.35-7.45); ABG TCO2 21.4 MMOL/L (23-27); Allen Test Positive; Pt O2 Delivery Device Ventilator
[2017-03-26 05:20] LABS: Basophils # 0.1 10*3/uL (0.0-0.2); Basophils % 0.8 % (0.0-0.8); Eosinophils # 0.1 10*3/uL (0.0-0.87); Eosinophils % 0.4 % (0.00-10.9); Hematocrit 32.2 VOL% (42.0-52.0); Hemoglobin 11.5 GM/DL (14.0-18.0); Immature Granulocytes % 8.9 %; Immature Granulocytes Absolute 1.12 #; Lymphocytes # 0.6 10*3/uL (1.4-4.0); Lymphocytes % 4.9 % (21.2-54.2); Mean Corpuscular HGB Conc 35.7 GM/DL (32-36); Mean Corpuscular Hemoglobin 32 PG (27-34); Mean Corpuscular Volume 88.2 FL (87-102); Monocytes # 2.3 10*3/uL (0.11-0.8); Monocytes % 18.1 % (1.7-12.7); Neutrophils # 8.4 10*3/uL (1.4-7.4); Neutrophils % 66.9 % (38.7-73.9); Platelet Count 279 T/CUMM (130-400); Red Blood Count 3.65 MC/CUMM (3.8-5.5); Red Cell Distribution Width 17.2 % (9.3-17.3); White Blood Count 12.6 T/CUMM (4-12)
[2017-03-26 06:03] LABS: Albumin 1.6 G/DL (3.4-5.0); Bilirubin,Total 8.4 MG/DL (0.2-1.0); Magnesium 1.9 MG/DL (1.8-2.4); Osmolality,Calculated 271.7 MOS/KG (273-304); Potassium 3.4 MMOL/L (3.5-5.1); Total Protein 5.6 G/DL (6.4-8.3)
[2017-03-26 06:12] LABS: Band Neutrophils 7 % (0-10); Eosinophils 2 % (0-10); Lymphocytes 13 % (20-55); Segmented Neutrophils 61 % (50-85); Total Cells Counted 100
[2017-03-26 06:13] LABS: Atypical Lymphocytes Few; Platelet Estimate Normal
[2017-03-26] MEDS: ETHAMBUTOL 400 MG TABLET PO SCH (08:45)
[2017-03-26] MEDS: RIFAMPIN 300 MG CAPSULE PO SCH (08:46)
[2017-03-26] MEDS: PYRAZINAMIDE 500 MG TABLET PO SCH (08:46)
[2017-03-26] MEDS: PANTOPRAZOLE 40 MG VIAL IV SCH (08:46)
[2017-03-26] MEDS: NYSTATIN 500,000 UNIT/5 ML UDCUP SWISH/SWAL SCH ×4 (08:46→21:58)
[2017-03-26] MEDS: MULTIVITAMIN LIQUID (CENTRUM) 60 ML BOTTLE PER TUBE SCH (08:58)
[2017-03-26] MEDS: POTASSIUM PHOSPHATE IV SCH (11:55)
[2017-03-26] MEDS: ELECTROLYTE IV SCH (11:55)
[2017-03-26] MEDS: [UNRECOGNIZED DRUG - OTHER] IV SCH (11:55)
[2017-03-26] MEDS: AMINO ACIDS 10% IV SCH (11:55)
[2017-03-27] MEDS: ALBUTEROL/IPRATROPIUM 3 ML NEB RESP TX SCH ×3 (01:00→12:26)
[2017-03-27] MEDS: INSULIN REGULAR 100 UNIT/ML SUBCUT SCH ×4 (02:54→18:15)
[2017-03-27] MEDS: METOCLOPRAMIDE 10 MG/2 ML VIAL IV SCH ×4 (02:55→21:54)
[2017-03-27 04:04] LABS: ABG Base Excess -0.1 MMOL/L (-2.5-2.5); ABG HCO3 24.3 MMOL/L (20-26); ABG Oxygen Saturation 98.6 % (95-100); ABG PCO2 40.1 MM HG (35-48); ABG PH 7.396 (7.35-7.45); ABG TCO2 22.1 MMOL/L (23-27); Allen Test Positive; Pt O2 Delivery Device Ventilator
[2017-03-27 06:20] LABS: Magnesium 1.9 MG/DL (1.8-2.4); Prealbumin 10.7 MG/DL (20-40)
[2017-03-27] MEDS: [UNRECOGNIZED DRUG - OTHER] IV SCH (09:27)
[2017-03-27] MEDS: AMINO ACIDS 10% IV SCH (09:27)
[2017-03-27] MEDS: POTASSIUM PHOSPHATE IV SCH ×3 (09:27→17:16)
[2017-03-27] MEDS: ELECTROLYTE IV SCH ×3 (09:27→17:16)
[2017-03-27] MEDS: ETHAMBUTOL 400 MG TABLET PO SCH (09:36)
[2017-03-27] MEDS: NYSTATIN 500,000 UNIT/5 ML UDCUP SWISH/SWAL SCH ×4 (09:36→21:55)
[2017-03-27] MEDS: MULTIVITAMIN LIQUID (CENTRUM) 60 ML BOTTLE PER TUBE SCH (09:36)
[2017-03-27] MEDS: RIFAMPIN 300 MG CAPSULE PO SCH (09:36)
[2017-03-27] MEDS: PYRAZINAMIDE 500 MG TABLET PO SCH (09:36)
[2017-03-27] MEDS: PANTOPRAZOLE 40 MG VIAL IV SCH (09:39)
[2017-03-27] MEDS: PROPOFOL 1,000 MG/100 ML BOTTLE IV SCH (09:58)
[2017-03-27] MEDS: [UNRECOGNIZED DRUG - OTHER] IV SCH ×2 (17:09→17:16)
[2017-03-28] MEDS: ALBUTEROL/IPRATROPIUM 3 ML NEB RESP TX SCH ×5 (00:28→20:22)
[2017-03-28] MEDS: PROPOFOL 1,000 MG/100 ML BOTTLE IV SCH ×3 (01:27→21:48)
[2017-03-28] MEDS: INSULIN REGULAR 100 UNIT/ML SUBCUT SCH ×4 (02:22→18:06)
[2017-03-28 03:41] LABS: ABG Base Excess 0.7 MMOL/L (-2.5-2.5); ABG Oxygen Saturation 98.3 % (95-100); ABG PCO2 43.6 MM HG (35-48); ABG PH 7.385 (7.35-7.45); ABG TCO2 22.4 MMOL/L (23-27)
[2017-03-28] MEDS: METOCLOPRAMIDE 10 MG/2 ML VIAL IV SCH ×4 (04:00→21:56)
[2017-03-28 04:31] LABS: Basophils # 0.1 10*3/uL (0.0-0.2); Basophils % 0.6 % (0.0-0.8); Eosinophils # 0.1 10*3/uL (0.0-0.87); Eosinophils % 0.8 % (0.00-10.9); Hematocrit 28.8 VOL% (42.0-52.0); Hemoglobin 10.4 GM/DL (14.0-18.0); Immature Granulocytes % 6.8 %; Immature Granulocytes Absolute 0.75 #; Lymphocytes # 0.5 10*3/uL (1.4-4.0); Lymphocytes % 4.3 % (21.2-54.2); Mean Corpuscular HGB Conc 36.1 GM/DL (32-36); Mean Corpuscular Hemoglobin 32 PG (27-34); Mean Corpuscular Volume 87.5 FL (87-102); Monocytes # 1.6 10*3/uL (0.11-0.8); Monocytes % 14.8 % (1.7-12.7); Neutrophils % 72.7 % (38.7-73.9); Platelet Count 263 T/CUMM (130-400); Red Blood Count 3.29 MC/CUMM (3.8-5.5); Red Cell Distribution Width 17.5 % (9.3-17.3)
[2017-03-28 04:59] LABS: Albumin 1.4 G/DL (3.4-5.0); Bilirubin,Total 6.4 MG/DL (0.2-1.0); Calcium 7.8 MG/DL (8.5-10.1); Magnesium 1.8 MG/DL (1.8-2.4); Osmolality,Calculated 272.7 MOS/KG (273-304); Potassium 3.4 MMOL/L (3.5-5.1); Total Protein 5.2 G/DL (6.4-8.3)
[2017-03-28 08:44] LABS: Band Neutrophils 3 % (0-10); Hypochromasia 1+; Lymphocytes 5 % (20-55); Metamyelocytes 1 %; Promyelocytes 1 %; Segmented Neutrophils 74 % (50-85); Total Cells Counted 100
[2017-03-28 08:45] LABS: Microcytosis 1+; Platelet Estimate Normal; Target Cells Slight
[2017-03-28] MEDS: PANTOPRAZOLE 40 MG VIAL IV SCH (09:44)
[2017-03-28] MEDS: MULTIVITAMIN LIQUID (CENTRUM) 60 ML BOTTLE PER TUBE SCH (09:53)
[2017-03-28] MEDS: ETHAMBUTOL 400 MG TABLET PO SCH (09:54)
[2017-03-28] MEDS: PYRAZINAMIDE 500 MG TABLET PO SCH (09:54)
[2017-03-28] MEDS: RIFAMPIN 300 MG CAPSULE PO SCH (09:55)
[2017-03-28] MEDS: NYSTATIN 500,000 UNIT/5 ML UDCUP SWISH/SWAL SCH ×4 (09:56→21:56)
[2017-03-28] MEDS: ELECTROLYTE IV SCH (14:36)
[2017-03-28] MEDS: [UNRECOGNIZED DRUG - OTHER] IV SCH (14:36)
[2017-03-28] MEDS: POTASSIUM PHOSPHATE IV SCH (14:36)
[2017-03-28] MEDS: POTASSIUM CHLORIDE RIDER 20 MEQ in PREMIX 1 EACH IV PRN (14:46)
[2017-03-28] MEDS: MAGNESIUM SULF RIDER 2 GM in PREMIX 1 EACH IV PRN (17:13)
[2017-03-28] MEDS: POTASSIUM CHLORIDE RIDER 10 MEQ in PREMIX 1 EACH IV PRN (17:44)
[2017-03-29] MEDS: ALBUTEROL/IPRATROPIUM 3 ML NEB RESP TX SCH ×4 (02:25→20:26)
[2017-03-29 02:35] LABS: ABG Base Excess -0.4 MMOL/L (-2.5-2.5); ABG HCO3 24.2 MMOL/L (20-26); ABG Oxygen Saturation 99.9 % (95-100); ABG PCO2 53.7 MM HG (35-48); ABG PH 7.307 (7.35-7.45); ABG TCO2 24.1 MMOL/L (23-27)
[2017-03-29] MEDS: INSULIN REGULAR 100 UNIT/ML SUBCUT SCH ×5 (02:37→23:50)
[2017-03-29] MEDS: METOCLOPRAMIDE 10 MG/2 ML VIAL IV SCH ×4 (04:45→21:19)
[2017-03-29] MEDS ORDERED: RIFABUTIN 150 MG CAPSULE PO SCH (09:00)
[2017-03-29] MEDS: ETHAMBUTOL 400 MG TABLET PO SCH (10:50)
[2017-03-29] MEDS: NYSTATIN 500,000 UNIT/5 ML UDCUP SWISH/SWAL SCH ×4 (10:51→21:19)
[2017-03-29] MEDS: PYRAZINAMIDE 500 MG TABLET PO SCH (10:51)
[2017-03-29] MEDS: PANTOPRAZOLE 40 MG VIAL IV SCH (10:52)
[2017-03-29] MEDS: MULTIVITAMIN LIQUID (CENTRUM) 60 ML BOTTLE PER TUBE SCH (10:52)
[2017-03-29] MEDS ORDERED: RIFAMPIN 300 MG CAPSULE PO SCH (12:00)
[2017-03-29] MEDS: [UNRECOGNIZED DRUG - OTHER] IV SCH (12:23)
[2017-03-29] MEDS: POTASSIUM PHOSPHATE IV SCH (12:23)
[2017-03-29] MEDS: ELECTROLYTE IV SCH (12:23)
[2017-03-29] MEDS ORDERED: FAT EMULSION 20% 250 ML IV SCH (14:00)
[2017-03-29] MEDS: PROPOFOL 1,000 MG/100 ML BOTTLE IV SCH (23:51)
[2017-03-30] MEDS: ALBUTEROL/IPRATROPIUM 3 ML NEB RESP TX SCH ×3 (00:56→13:00)
[2017-03-30 02:07] LABS: Basophils # 0.1 10*3/uL (0.0-0.2); Eosinophils # 0.1 10*3/uL (0.0-0.87); Eosinophils % 1.3 % (0.00-10.9); Hematocrit 29.3 VOL% (42.0-52.0); Hemoglobin 10.1 GM/DL (14.0-18.0); Immature Granulocytes % 5.6 %; Immature Granulocytes Absolute 0.62 #; Lymphocytes # 0.6 10*3/uL (1.4-4.0); Mean Corpuscular HGB Conc 34.5 GM/DL (32-36); Mean Corpuscular Hemoglobin 31 PG (27-34); Mean Corpuscular Volume 90.7 FL (87-102); Mean Platelet Volume 9.8 FL (9.6-12.0); Monocytes # 1.6 10*3/uL (0.11-0.8); Monocytes % 14.1 % (1.7-12.7); Neutrophils # 8.1 10*3/uL (1.4-7.4); Platelet Count 286 T/CUMM (130-400); Red Blood Count 3.23 MC/CUMM (3.8-5.5); Red Cell Distribution Width 17.7 % (9.3-17.3); White Blood Count 11.1 T/CUMM (4-12)
[2017-03-30 02:47] LABS: Albumin 1.4 G/DL (3.4-5.0); Bilirubin,Total 7.1 MG/DL (0.2-1.0); Calcium 7.6 MG/DL (8.5-10.1); Total Protein 5.4 G/DL (6.4-8.3)
[2017-03-30 02:48] LABS: Magnesium 2.1 MG/DL (1.8-2.4); Osmolality,Calculated 268.8 MOS/KG (273-304); Potassium 3.9 MMOL/L (3.5-5.1)
[2017-03-30 02:59] LABS: Anisocytosis 1+; Band Neutrophils 6 % (0-10); Eosinophils 4 % (0-10); Lymphocytes 4 % (20-55); Poikilocytosis 1+; Segmented Neutrophils 78 % (50-85); Total Cells Counted 100
[2017-03-30 03:00] LABS: Target Cells Slight
[2017-03-30 03:57] LABS: Allen Test Positive; Pt O2 Delivery Device Ventilator
[2017-03-30 03:58] LABS: ABG Base Excess 0.1 MMOL/L (-2.5-2.5); ABG HCO3 24.5 MMOL/L (20-26); ABG Oxygen Saturation 98.5 % (95-100); ABG PCO2 41.9 MM HG (35-48); ABG PH 7.386 (7.35-7.45); ABG TCO2 22.9 MMOL/L (23-27)
[2017-03-30] MEDS: METOCLOPRAMIDE 10 MG/2 ML VIAL IV SCH ×2 (04:06→09:20)
[2017-03-30] MEDS: INSULIN REGULAR 100 UNIT/ML SUBCUT SCH ×2 (06:26→12:00)
[2017-03-30] MEDS ORDERED: RIFABUTIN 150 MG CAPSULE PO SCH (09:00)
[2017-03-30] MEDS: POTASSIUM PHOSPHATE IV SCH (09:05)
[2017-03-30] MEDS: ACETAMINOPHEN 325 MG TABLET PO PRN (09:05)
[2017-03-30] MEDS: ELECTROLYTE IV SCH (09:05)
[2017-03-30] MEDS: MULTIVITAMIN LIQUID (CENTRUM) 60 ML BOTTLE PER TUBE SCH (09:05)
[2017-03-30] MEDS: PYRAZINAMIDE 500 MG TABLET PO SCH (09:05)
[2017-03-30] MEDS: NYSTATIN 500,000 UNIT/5 ML UDCUP SWISH/SWAL SCH ×2 (09:05→14:26)
[2017-03-30] MEDS: [UNRECOGNIZED DRUG - OTHER] IV SCH (09:05)
[2017-03-30] MEDS: ETHAMBUTOL 400 MG TABLET PO SCH (09:05)
[2017-03-30] MEDS: PANTOPRAZOLE 40 MG VIAL IV SCH (09:20)
[2017-03-30 14:56] VITALS: BP 112/65
== END 2017-03-30 14:50 | DRG 4 ==
LOC: EDBD → EDUNIT# → N.ED 20:26 → SUATTDRO 22:49 → N.EDINP 22:49 → N.ICU 02-14 00:33 → N.4E 02-15 14:35 → N.TELEN 02-20 03:24 → N.ICU 02-22 16:22
PROVIDERS: ADMIT Family Medicine; ATTEND Internal Medicine Infectious Disease

== ENCOUNTER 2017-07-05 00:36 | Inpatient (IN) ==
[2017-07-05 03:17] LABS: Lactic Acid 2.1 MMOL/L (0.4-2.0)
[2017-07-05] MEDS ORDERED: ONDANSETRON 4 MG/2 ML VIAL IV PRN (04:25)
[2017-07-05] MEDS ORDERED: SODIUM CHLORIDE 0.9% 1,000 ML IV SCH (04:30)
[2017-07-05 05:20] LABS: Basophils % 0.3 % (0.0-0.8); Eosinophils # 0.1 10*3/uL (0.0-0.87); Eosinophils % 0.6 % (0.00-10.9); Hematocrit 33.9 VOL% (42.0-52.0); Immature Granulocytes % 0.4 %; Immature Granulocytes Absolute 0.04 #; Lymphocytes # 0.6 10*3/uL (1.4-4.0); Lymphocytes % 6.7 % (21.2-54.2); Mean Corpuscular HGB Conc 35.4 GM/DL (32-36); Mean Corpuscular Hemoglobin 35 PG (27-34); Mean Corpuscular Volume 98.5 FL (87-102); Mean Platelet Volume 9.3 FL (9.6-12.0); Monocytes # 0.7 10*3/uL (0.11-0.8); Monocytes % 7.6 % (1.7-12.7); Neutrophils # 7.8 10*3/uL (1.4-7.4); Neutrophils % 84.4 % (38.7-73.9); Platelet Count 217 T/CUMM (130-400); Red Blood Count 3.44 MC/CUMM (3.8-5.5); Red Cell Distribution Width 13.7 % (9.3-17.3); White Blood Count 9.3 T/CUMM (4-12)
[2017-07-05 05:46] LABS: Albumin 2.9 G/DL (3.4-5.0); Bilirubin,Total 0.5 MG/DL (0.2-1.0); Calcium 9.1 MG/DL (8.5-10.1); Osmolality,Calculated 275.8 MOS/KG (273-304); Potassium 4.6 MMOL/L (3.5-5.1); Total Protein 6.4 G/DL (6.4-8.3)
[2017-07-05] MEDS ORDERED: GLUCAGON 1 MG VIAL IM PRN (05:54)
[2017-07-05] MEDS ORDERED: DEXTROSE 50% 25 GM/50 ML VIAL IV PRN (05:54)
[2017-07-05] MEDS: PIPERACILLIN/TAZOBACTAM 3,375 MG in SODIUM CHLORIDE 0.9% 100 ML IV SCH ×3 (06:32→21:04)
[2017-07-05] MEDS: INSULIN LISPRO 100 UNIT/ML SUBCUT SCH ×4 (08:10→22:10)
[2017-07-05] MEDS: DEXTROSE 5% 1,000 ML IV SCH (12:05)
[2017-07-05] MEDS ORDERED: MORPHINE 4 MG/1 ML VIAL IV PRN (20:26)
[2017-07-06] MEDS: DEXTROSE 5% 1,000 ML IV SCH (04:31)
[2017-07-06] MEDS: PIPERACILLIN/TAZOBACTAM 3,375 MG in SODIUM CHLORIDE 0.9% 100 ML IV SCH (05:19)
[2017-07-06] MEDS: INSULIN LISPRO 100 UNIT/ML SUBCUT SCH ×2 (07:45→11:47)
[2017-07-06 11:54] VITALS: BP 107/51
== END 2017-07-06 12:08 | disposition hospice, inpatient (51) | DRG 689 ==
LOC: EDUNIT# → EDBD → N.ED 00:36 → N.EDINP 02:24 → N.5E 03:26
PROVIDERS: ADMIT Internal Medicine; ATTEND Internal Medicine